=== PATIENT | female | born 1940 | race Two or more races ===

== ENCOUNTER 2016-10-08 21:16 | Inpatient (IN) | payer MEDICAID ==
[~2016-10-08] VITALS: Ht 157.5 cm; Wt 108.0 kg
[2016-10-08] MEDS ORDERED: Albuterol ud Inhalation HHN ONE (21:45)
--- NOTE | 2016-10-08 21:56 | Emergency Room Report ---
History of Present Illness General Chief Complaint: Dyspnea/Respdistress Source: Patient, Family Member Present Illness HPI This is a 75-year-old female with no past medical history. She hasn't seen a doctor in a long period of time. She presents with chief complaint of cough and congestion for the last 2 weeks. No fever or chills. No nausea no vomiting. Short of breath with walking. Short of breath with lying flat. No edema. Denies any chest pain. Does have chest tightness. Denies diaphoresis. Has not anything other than musinex. Allergies: Coded Allergies: No Known Allergies (Unverified , 10/08/16) Patient History Past Medical History: none, see triage record, old chart reviewed Past Surgical History: other Pertinent Family History: none Social History: Denies: drug use Now: No Immunizations: other Reviewed Nursing Documentation: PMH: Agreed, PSxH: Agreed Nursing Documentation-PM Past Medical History: No Stated History Review of Systems Eye: Denies: blurred vision, eye pain ENT: Denies: ear pain, nose congestion, throat swelling Respiratory: Reports: cough, shortness of breath Cardiovascular: Denies: chest pain, palpitations Gastrointestinal: Denies: abdominal pain, diarrhea, nausea, vomiting Musculoskeletal: Denies: back pain, joint pain Skin: Denies: rash Neurological: Denies: headache, numbness Endocrine: Denies: increased thirst, increased urine Hematologic/Lymphatic: Denies: easy bruising All Other Systems: negative except mentioned in HPI Physical Exam Vital Signs Date Time Temp Pulse Resp B/P Pulse Ox O2 Delivery O2 Flow Rate FiO2 10/08/16 21:23 98.2 115 21 113/71 98 Room Air 10/08/16 21:52 21 vitals with tachycardia Sp02 EP Interpretation: reviewed, normal General Appearance: well appearing, no apparent distress, alert Head: normocephalic, atraumatic Eyes: bilateral eye EOMI, bilateral eye PERRL ENT: hearing grossly normal, normal pharynx Neck: full range of motion, supple, no meningismus Respiratory: chest non-tender, rales - pt with a wet cough Cardiovascular #1: no murmur, tachycardia, irregularly irregular Gastrointestinal: normal bowel sounds, non tender, no mass, no organomegaly, no bruit, non-distended Musculoskeletal: back normal, gait/station normal, normal range of motion Psychiatric: mood/affect normal Skin: warm/dry Medical Decision Making Diagnostic Impression: Primary Impression: Atrial fibrillation with rapid ventricular response Additional Impressions: Acute exacerbation of CHF (congestive heart failure) Qualified Codes: I50.9 - Heart failure, unspecified Obesity (BMI 30-39.9) ER Course Patient presents with a wet cough for 2 weeks. This is secondary to CHF from her atrial fibrillation. She has no primary care Dr. Start her on dig to control the heart rate. This is because her blood pressure is on the low end of normal. Heart rate better now. Will admit for further workup. Lab Results Impression Labs with elevated bnp. EKG Diagnostic Results Rate: tachycardiac Rhythm: other - rapid afib ST Segments: no acute changes Rhythm Strip Diag. Results EP Interpretation: yes Rate: 93 Rhythm: no PVC's, no ectopy Chest X-Ray Diagnostic Results EP Interpretation: Yes Findings: no consolidation, no pneumothorax, other - CM with vasc congestion and small effusion Number of Views: 1 Last Vital Signs Date Time Temp Pulse Resp B/P Pulse Ox O2 Delivery O2 Flow Rate FiO2 10/08/16 21:52 102 21 96 Room Air 10/08/16 21:52 21 10/08/16 21:23 98.2 113/71 Status: improved Disposition: ADMITTED INPATIENT Condition: Serious Referrals: NOT CHOSEN REBECCA/,REFERRING (PCP) LYNN JETER M.D. Oct 08, 2016 21:56
[2016-10-08] MEDS ORDERED: Digoxin 0.5mg/2ml Inj IVP ONE (22:00)
[2016-10-08 22:03] VITALS: BP 107/69
[2016-10-08 22:05] LABS: BASOPHILS % (AUTO) 1.4 % (0.0-2.0); EOSINOPHILS % (AUTO) 2.8 % (0.0-3.0); LYMPHOCYTES % (AUTO) 15.2 % (20.0-45.0); MEAN CORPUSCULAR HEMOGLOBIN 23.6 PG (27.0-31.0); MEAN CORPUSCULAR VOLUME 74 FL (80-99); MEAN PLATELET VOLUME 5.3 FL (6.5-10.1); MONOCYTES % (AUTO) 14.7 % (1.0-10.0); NEUTROPHILS % (AUTO) 65.9 % (45.0-75.0); PLATELET COUNT 444 K/UL (150-450); RED BLOOD COUNT 4.52 M/UL (4.20-5.40); RED CELL DISTRIBUTION WIDTH 15.9 % (11.6-14.8)
[2016-10-08 22:27] LABS: INR 1.1 (0.9-1.1); PROTHROMBIN TIME 10.8 SEC (9.30-11.50)
[2016-10-08 22:32] LABS: TROPONIN I < 0.30 ng/mL (<=0.30)
[2016-10-08 22:36] LABS: ANION GAP 17 (5-15); CALCIUM 8.5 mg/dL (8.6-10.2); CARBON DIOXIDE 25 mEQ/L (20-30); CHLORIDE 81 mEQ/L (98-107); CREATININE 0.5 mg/dL (0.5-0.9); HEMOLYSIS 11; SODIUM 123 mEQ/L (135-145)
[2016-10-08] MEDS ORDERED: NKM (23:08)
[2016-10-08] MEDS ORDERED: Diltiazem 25mg/5ml IV PRN (23:45)
[2016-10-08] MEDS ORDERED: Miralax 17gm pkt ORAL PRN (23:45)
[2016-10-08] MEDS ORDERED: DuoNeb 0.5-3(2.5)mg/3ml neb HHN PRN (23:45)
[2016-10-08] MEDS ORDERED: Ketorolac 30mg Inj IV PRN (23:45)
[2016-10-08] MEDS ORDERED: Nitroglycerin Subl 0.4mg tab (Bottle Of 25) SL PRN (23:45)
[2016-10-08] MEDS ORDERED: Morphine Sulfate 2mg/ml Inj IVP PRN (23:45)
[2016-10-08] MEDS ORDERED: Metoprolol 5mg/5ml Inj IVP PRN (23:45)
[2016-10-08] MEDS ORDERED: Enoxaparin 100mg Inj SUBQ ONE (23:45)
[2016-10-08 23:55] LABS: APPEARANCE,URINE CLEAR; KETONES,URINE NEGATIVE (NEGATIVE); LEUKOCYTE ESTERASE ,URINE NEGATIVE (NEGATIVE); NITRITE,URINE NEGATIVE (NEGATIVE); PH,URINE 7 (4.5-8.0); PROTEIN,URINE NEGATIVE (NEGATIVE); UROBILINOGEN,URINE NORMAL MG/DL (0.0-1.0)
[2016-10-09] VITALS (7 sets, daily range): BP systolic 98–143; BP diastolic 46–80
[2016-10-09] MEDS ORDERED: Heparin 25,000u/D5W 500ml 500 ML IV SCH ×2 (02:30→03:41)
[2016-10-09 08:29] LABS: BASOPHILS % (AUTO) 1.2 % (0.0-2.0); EOSINOPHILS % (AUTO) 2.1 % (0.0-3.0); MEAN CORPUSCULAR HGB CONC 30.4 G/DL (32.0-36.0); MEAN CORPUSCULAR VOLUME 72 FL (80-99); MEAN PLATELET VOLUME 5.7 FL (6.5-10.1); MONOCYTES % (AUTO) 14.6 % (1.0-10.0); NEUTROPHILS % (AUTO) 70.2 % (45.0-75.0); PLATELET COUNT 436 K/UL (150-450); RED BLOOD COUNT 4.77 M/UL (4.20-5.40); RED CELL DISTRIBUTION WIDTH 16.2 % (11.6-14.8); WHITE BLOOD COUNT 6.5 K/UL (4.8-10.8)
[2016-10-09 08:36] LABS: INR 1.1 (0.9-1.1); PROTHROMBIN TIME 11.5 SEC (9.30-11.50)
[2016-10-09 08:45] LABS: CHOLESTEROL/HDL RATIO 2.5 (3.3-4.4); CRP QUANT 4.5 mg/dL (< 0.5); TROPONIN I < 0.30 ng/mL (<=0.30)
[2016-10-09] MEDS: Heparin 25,000u/D5W 500ml 500 ML IV SCH ×2 (08:52→17:36)
[2016-10-09 09:08] LABS: THYROID STIMULATING HORMONE 1.81 uIU/mL (0.300-4.500)
[2016-10-09] MEDS: guaiFENesin DM 100mg/5ml ORAL PRN ×2 (10:42→17:37)
--- NOTE | 2016-10-09 10:58 | Diagnostic Imaging Report ---
Indication: SOB Technique: One view of the chest Comparison: none Findings: Body habitus limits evaluation. The heart is enlarged. Vague increased opacity at both lung bases likely reflects overlying soft tissue shadows, but underlying critical disease not excludable. No definite effusion Impression: Cardiomegaly Cannot rule out bibasilar parenchymal disease. Correlate with clinical findings
--- NOTE | 2016-10-09 16:01 | Consultation ---
History of Present Illness General Date patient seen: Oct 09, 2016 Chief Complaint: Dyspnea/Respdistress Reason for Consultation: dyspnea Present Illness HPI 75-year-old female with no past medical history presented with chief complaint of cough and congestion for the last 2 weeks. No fever or chills. she was diagnosed to have Atrial fibrillation and CHF and admitted for further evaluation. she is morbidly obese and slightly less dyspnic than prior to admission. Allergies: Coded Allergies: No Known Allergies (Unverified , 10/08/16) Medication History Scheduled No Known Medications* (NKM - No Known Medications*), 0 ., (Reported) Patient History Healthcare decision maker Resuscitation status Full Code Advanced Directive on File Review of Systems Respiratory: Reports: shortness of breath All Other Systems: negative except mentioned in HPI Physical Exam General Appearance: WD/WN, no apparent distress Lines, tubes and drains: peripheral, central line HEENT: normocephalic, atraumatic Neck: non-tender, normal alignment Respiratory/Chest: chest wall non-tender, lungs clear Cardiovascular/Chest: normal peripheral pulses, normal rate, regularly irregular Abdomen: normal bowel sounds Genitourinary/Rectal: normal genital exam Extremities: normal range of motion Last 24 Hour Vital Signs Date Time Temp Pulse Resp B/P Pulse Ox O2 Delivery O2 Flow Rate FiO2 10/09/16 12:00 84 10/09/16 12:00 96.9 92 18 120/68 98 Nasal Cannula 2.0 10/09/16 11:44 98 20 95 Nasal Cannula 2.0 28 10/09/16 08:00 91 10/09/16 08:00 95.9 95 18 117/60 99 Nasal Cannula 10/09/16 08:00 81 16 Room Air 21 10/09/16 04:00 98 10/09/16 04:00 97.0 101 20 111/67 98 10/09/16 00:50 96.8 99 20 120/75 99 Room Air 10/09/16 00:39 98.6 98 19 126/80 97 Room Air 21 10/09/16 00:03 98.6 98 19 126/80 97 Room Air 21 10/08/16 22:09 100 10/08/16 22:03 110 16 Room Air 21 10/08/16 22:03 98.6 110 19 107/69 97 Room Air 10/08/16 22:01 98 20 98 Room Air 21 10/08/16 21:52 102 21 96 Room Air 10/08/16 21:52 102 21 Room Air 21 10/08/16 21:23 98.2 115 21 113/71 98 Room Air Intake and Output 10/08/16 10/09/16 19:00 07:00 Intake Total 267.432 ml Output Total 980 ml Balance -712.568 ml Intake Oral 120 ml IV Total 147.432 ml Output Urine Total 980 ml # Voids 5 Laboratory Tests Test 10/08/16 22:00 10/08/16 23:40 10/09/16 08:15 10/09/16 15:05 White Blood Count 7.0 K/UL (4.8-10.8) 6.5 K/UL (4.8-10.8) Red Blood Count 4.52 M/UL (4.20-5.40) 4.77 M/UL (4.20-5.40) Hemoglobin 10.7 G/DL (12.0-16.0) L 10.5 G/DL (12.0-16.0) L Hematocrit 33.3 % (37.0-47.0) L 34.6 % (37.0-47.0) L Mean Corpuscular Volume 74 FL (80-99) L 72 FL (80-99) L Mean Corpuscular Hemoglobin 23.6 PG (27.0-31.0) L 22.0 PG (27.0-31.0) L Mean Corpuscular Hemoglobin Concent 32.0 G/DL (32.0-36.0) 30.4 G/DL (32.0-36.0) L Red Cell Distribution Width 15.9 % (11.6-14.8) H 16.2 % (11.6-14.8) H Platelet Count 444 K/UL (150-450) 436 K/UL (150-450) Mean Platelet Volume 5.3 FL (6.5-10.1) L 5.7 FL (6.5-10.1) L Neutrophils (%) (Auto) 65.9 % (45.0-75.0) 70.2 % (45.0-75.0) Lymphocytes (%) (Auto) 15.2 % (20.0-45.0) L 12.0 % (20.0-45.0) L Monocytes (%) (Auto) 14.7 % (1.0-10.0) H 14.6 % (1.0-10.0) H Eosinophils (%) (Auto) 2.8 % (0.0-3.0) 2.1 % (0.0-3.0) Basophils (%) (Auto) 1.4 % (0.0-2.0) 1.2 % (0.0-2.0) Prothrombin Time 10.8 SEC (9.30-11.50) 11.5 SEC (9.30-11.50) Prothromb Time International Ratio 1.1 (0.9-1.1) 1.1 (0.9-1.1) Activated Partial Thromboplast Time 26 SEC (23-33) 98 SEC (23-33) H 73 SEC (23-33) H Sodium Level 123 mEQ/L (135-145) L Potassium Level 3.0 mEQ/L (3.4-4.9) L Chloride Level 81 mEQ/L (98-107) L Carbon Dioxide Level 25 mEQ/L (20-30) Anion Gap 17 (5-15) H Blood Urea Nitrogen 10 mg/dL (7-23) Creatinine 0.5 mg/dL (0.5-0.9) Estimat Glomerular Filtration Rate mL/min (>60) Glucose Level 136 mg/dL (74-106) H Calcium Level 8.5 mg/dL (8.6-10.2) L Troponin I < 0.30 ng/mL (<=0.30) < 0.30 ng/mL (<=0.30) Pro-B-Type Natriuretic Peptide 2498 pg/mL (0-450) H Urine Color Pale yellow Urine Appearance Clear Urine pH 7 (4.5-8.0) Urine Specific [place] 1.005 (1.005-1.035) Urine Protein Negative (NEGATIVE) Urine Glucose (UA) Negative (NEGATIVE) Urine Ketones Negative (NEGATIVE) Urine Occult Blood Negative (NEGATIVE) Urine Nitrite Negative (NEGATIVE) Urine Bilirubin Negative (NEGATIVE) Urine Urobilinogen Normal MG/DL (0.0-1.0) Urine Leukocyte Esterase Negative (NEGATIVE) C-Reactive Protein, Quantitative 4.5 mg/dL (< 0.5) H Triglycerides Level 57 mg/dL (< 150) Cholesterol Level 198 mg/dL (< 200) LDL Cholesterol 107 mg/dL (60-99) H HDL Cholesterol 80 mg/dL (> 60) H Cholesterol/HDL Ratio 2.5 (3.3-4.4) L Thyroid Stimulating Hormone (TSH) 1.810 uIU/mL (0.300-4.500) Height (Feet): 5 Height (Inches): 2.00 Weight (Pounds): 236 Medications Current Medications Medications (Trade) Dose Ordered Sig/Abby Route PRN Reason Start Time Stop Time Status Last Admin Dose Admin Acetaminophen (Tylenol) 650 mg Q4H PRN ORAL FEVER 10/08/16 23:45 11/07/16 23:44 Albuterol/ Ipratropium (DuoNeb 0.5-3(2.5)mg/3ml) 3 ml Q4H PRN HHN Shortness of Breath 10/08/16 23:45 10/13/16 23:44 10/09/16 11:44 Diltiazem HCl (Cardizem) 10 mg EVERY HOUR PRN IV heart rate more than 120, 10/08/16 23:45 11/07/16 23:44 Furosemide 40 mg 40 mg EVERY 8 HOURS IV 10/09/16 06:00 11/08/16 05:59 10/09/16 13:47 Guaifenesin/ Dextromethorphan (Robitussin DM) 5 ml Q4H PRN ORAL For Cough 10/09/16 09:30 11/08/16 09:29 10/09/16 10:42 Heparin Sodium/ Dextrose (Heparin) 500 ml @ 34.255 mls/ hr adjust per protocol IV 10/09/16 08:45 11/08/16 02:29 10/09/16 08:52 Ketorolac Tromethamine (Toradol 30mg) 30 mg Q6H PRN IV moderate pain ( 4-6) 10/08/16 23:45 10/13/16 23:44 Metoprolol Tartrate (Lopressor) 5 mg EVERY HOUR PRN IVP heart rate more than 140 10/08/16 23:45 11/07/16 23:44 Morphine Sulfate (Morphine Sulfate) 2 mg Q4H PRN IVP severe Pain (Pain Scale 7-10) 10/08/16 23:45 10/15/16 23:44 Nitroglycerin (Ntg) 0.4 mg Every 5 Minutes PRN SL Prn Chest Pain 10/08/16 23:45 11/07/16 23:44 Ondansetron HCl (Zofran) 4 mg Q6H PRN IVP Nausea & Vomiting 10/08/16 23:45 11/07/16 23:44 Pantoprazole (Protonix) 40 mg DAILY ORAL 10/09/16 09:00 11/08/16 08:59 10/09/16 08:48 Polyethylene Glycol (Miralax) 17 gm DAILYPRN PRN ORAL Constipation 10/08/16 23:45 11/07/16 23:44 Temazepam (Restoril) 15 mg HSPRN PRN ORAL Insomnia 10/08/16 23:45 10/15/16 23:44 Assessment/Plan Problem List: (1) Obesity (BMI 30-39.9) ICD Codes: E66.9 - Obesity, unspecified SNOMED: 757161406, 590012804 (2) Acute exacerbation of CHF (congestive heart failure) ICD Codes: I50.9 - Heart failure, unspecified SNOMED: 52730370, 658422356 Qualifiers: Qualified Codes: I50.9 - Heart failure, unspecified (3) Atrial fibrillation with rapid ventricular response ICD Codes: I48.91 - Unspecified atrial fibrillation SNOMED: 548127261728249, 761560284 Assessment/Plan diuretics heparin drip start coumadin digoxin MEHRAN MENJIVAR Oct 09, 2016 16:01
[2016-10-09 16:58] LABS: URIC ACID 3.2 mg/dL (3.0-7.5)
[2016-10-09 17:08] LABS: FREE T3 3.3 pg/mL (2.3-4.2); THYROID STIMULATING HORMONE 1.81 uIU/mL (0.300-4.500)
--- NOTE | 2016-10-09 17:21 | Cardiology Report ---
APPROVED REPORT EXAM: Two-dimensional and M-mode echocardiogram with Doppler and color Doppler. INDICATION Left Ventricular Function M-Mode DIMENSIONS IVSd1.4 (0.7-1.1cm)Left Atrium (MM)5.4 (1.6-4.0cm) LVDd5.0 (3.5-5.6cm)Aortic Root2.7 (2.0-3.7cm) PWd1.0 (0.7-1.1cm)Aortic Cusp Exc.1.7 (1.5-2.0cm) LVDs1.7 (2.5-4.0cm) PWs2.0 cm Normal left ventricular chamber size, systolic function and wall motion. Left ventricular ejection fraction estimated to be 60-65 %. Mild left ventricular hypertrophy. Anterior Echo-free space, may be due to pericardial fat or effusion. Moderate left atrial enlargement. Right ventricular chamber size is within normal limits. Mild focal aortic valve sclerosis with adequate cusp excursion. Mildly thickened mitral valve leaflets with normal excursion. Mild mitral annulus and aortic root calcification. Pulmonic valve not well visualized. Normal tricuspid valve structure. IVC dilated at 2.7 cm with physiologic collapse. A color flow and spectral Doppler study was performed and revealed: No aortic regurgitation. Moderate mitral regurgitation. Mitral inflow velocities indicates normal left ventricular diastolic function. Mild tricuspid regurgitation. Tricuspid systolic velocities suggests peak right ventricular systolic pressure of 65 mmHg, consistent with severe pulmonry hypertension. Mild pulmonic regurgitation present.
[2016-10-09] MEDS ORDERED: Warfarin Sodium 5mg ORAL ONE (18:00)
--- NOTE | 2016-10-09 18:19 | Cardiology Progress Note ---
Assessment/Plan Assessment/Plan afib unkown duration bronchitis dyspnea pulm htn obeisty electolyte abn hr contorled on dig avoid beta agonist agree with anticoagualtion abx for bronchitis dig / lwo dose dilt for hr contorl if needed dc diuretic as electolyte are off Objective Last 24 Hour Vital Signs Date Time Temp Pulse Resp B/P Pulse Ox O2 Delivery O2 Flow Rate FiO2 10/09/16 17:37 75 10/09/16 16:00 97.8 75 20 98/46 96 Room Air 10/09/16 12:00 84 10/09/16 12:00 96.9 92 18 120/68 98 Nasal Cannula 2.0 10/09/16 11:44 98 20 95 Nasal Cannula 2.0 28 10/09/16 08:00 91 10/09/16 08:00 95.9 95 18 117/60 99 Nasal Cannula 10/09/16 08:00 81 16 Room Air 21 10/09/16 04:00 98 10/09/16 04:00 97.0 101 20 111/67 98 10/09/16 00:50 96.8 99 20 120/75 99 Room Air 10/09/16 00:39 98.6 98 19 126/80 97 Room Air 21 10/09/16 00:03 98.6 98 19 126/80 97 Room Air 21 10/08/16 22:09 100 10/08/16 22:03 110 16 Room Air 21 10/08/16 22:03 98.6 110 19 107/69 97 Room Air 10/08/16 22:01 98 20 98 Room Air 21 10/08/16 21:52 102 21 96 Room Air 10/08/16 21:52 102 21 Room Air 21 10/08/16 21:23 98.2 115 21 113/71 98 Room Air Intake and Output 10/08/16 10/09/16 19:00 07:00 Intake Total 267.432 ml Output Total 980 ml Balance -712.568 ml Intake Oral 120 ml IV Total 147.432 ml Output Urine Total 980 ml # Voids 5 Laboratory Tests Test 10/08/16 22:00 10/08/16 23:40 10/09/16 08:15 10/09/16 15:05 White Blood Count 7.0 K/UL (4.8-10.8) 6.5 K/UL (4.8-10.8) Red Blood Count 4.52 M/UL (4.20-5.40) 4.77 M/UL (4.20-5.40) Hemoglobin 10.7 G/DL (12.0-16.0) L 10.5 G/DL (12.0-16.0) L Hematocrit 33.3 % (37.0-47.0) L 34.6 % (37.0-47.0) L Mean Corpuscular Volume 74 FL (80-99) L 72 FL (80-99) L Mean Corpuscular Hemoglobin 23.6 PG (27.0-31.0) L 22.0 PG (27.0-31.0) L Mean Corpuscular Hemoglobin Concent 32.0 G/DL (32.0-36.0) 30.4 G/DL (32.0-36.0) L Red Cell Distribution Width 15.9 % (11.6-14.8) H 16.2 % (11.6-14.8) H Platelet Count 444 K/UL (150-450) 436 K/UL (150-450) Mean Platelet Volume 5.3 FL (6.5-10.1) L 5.7 FL (6.5-10.1) L Neutrophils (%) (Auto) 65.9 % (45.0-75.0) 70.2 % (45.0-75.0) Lymphocytes (%) (Auto) 15.2 % (20.0-45.0) L 12.0 % (20.0-45.0) L Monocytes (%) (Auto) 14.7 % (1.0-10.0) H 14.6 % (1.0-10.0) H Eosinophils (%) (Auto) 2.8 % (0.0-3.0) 2.1 % (0.0-3.0) Basophils (%) (Auto) 1.4 % (0.0-2.0) 1.2 % (0.0-2.0) Prothrombin Time 10.8 SEC (9.30-11.50) 11.5 SEC (9.30-11.50) Prothromb Time International Ratio 1.1 (0.9-1.1) 1.1 (0.9-1.1) Activated Partial Thromboplast Time 26 SEC (23-33) 98 SEC (23-33) H 73 SEC (23-33) H Sodium Level 123 mEQ/L (135-145) L Potassium Level 3.0 mEQ/L (3.4-4.9) L Chloride Level 81 mEQ/L (98-107) L Carbon Dioxide Level 25 mEQ/L (20-30) Anion Gap 17 (5-15) H Blood Urea Nitrogen 10 mg/dL (7-23) Creatinine 0.5 mg/dL (0.5-0.9) Estimat Glomerular Filtration Rate mL/min (>60) Glucose Level 136 mg/dL (74-106) H Calcium Level 8.5 mg/dL (8.6-10.2) L Troponin I < 0.30 ng/mL (<=0.30) < 0.30 ng/mL (<=0.30) Pro-B-Type Natriuretic Peptide 2498 pg/mL (0-450) H Urine Color Pale yellow Urine Appearance Clear Urine pH 7 (4.5-8.0) Urine Specific [place] 1.005 (1.005-1.035) Urine Protein Negative (NEGATIVE) Urine Glucose (UA) Negative (NEGATIVE) Urine Ketones Negative (NEGATIVE) Urine Occult Blood Negative (NEGATIVE) Urine Nitrite Negative (NEGATIVE) Urine Bilirubin Negative (NEGATIVE) Urine Urobilinogen Normal MG/DL (0.0-1.0) Urine Leukocyte Esterase Negative (NEGATIVE) Neutrophils % (Manual) Pending Lymphocytes % (Manual) Pending Platelet Estimate Pending Platelet Morphology Pending Uric Acid 3.2 mg/dL (3.0-7.5) Iron Level 22 ug/dL (37-145) L Total Iron Binding Capacity 350 ug/dL (250-400) Percent Iron Saturation 6 % (15-50) L Unsaturated Iron Binding 328 ug/dL (112-346) Lactate Dehydrogenase 189 U/L (135-230) C-Reactive Protein, Quantitative 4.5 mg/dL (< 0.5) H Triglycerides Level 57 mg/dL (< 150) Cholesterol Level 198 mg/dL (< 200) LDL Cholesterol 107 mg/dL (60-99) H HDL Cholesterol 80 mg/dL (> 60) H Cholesterol/HDL Ratio 2.5 (3.3-4.4) L Carcinoembryonic Antigen 1.8 ng/mL Vitamin B12 Level 962 pg/mL (211-946) H Thyroid Stimulating Hormone (TSH) 1.810 uIU/mL (0.300-4.500) Free Thyroxine 1.46 ng/dL (0.86-1.85) Free Triiodothyronine 3.3 pg/mL (2.3-4.2) Test 10/09/16 16:55 Erythrocyte Sedimentation Rate Pending Reticulocyte Count Pending Plasma/Serum Osmolality Pending Folate Pending Cortisol Pending HEAVENLY MI Oct 09, 2016 18:19
--- NOTE | 2016-10-09 18:40 | History & Physical ---
History and Physical History & Physicial Dictated for Int Med-Dr Ann no. [id number]. ELIZA LIN Oct 09, 2016 18:40
[2016-10-09 20:31] LABS: BAND NEUTROPHILS % (MANUAL) 3 % (0-8); BASOPHILS % (MANUAL) 0 % (0-2); EOSINOPHILS % (MANUAL) 0 % (0-3); LYMPHOCYTES % (MANUAL) 12 % (20-45); NEUTROPHILS % (MANUAL) 77 % (45-75); PLATELET ESTIMATE ADEQUATE; TOTAL CELLS COUNTED 100
[2016-10-09 20:32] LABS: ANISOCYTOSIS 1+; HYPOCHROMASIA 1+; POLYCHROMASIA 1+
[2016-10-09 20:34] LABS: PATH BLOOD SMEAR/OMC SENT TO PATHOLOGIST
[2016-10-09] MEDS: NS w/KCl 20mEq 1,000 ML IV SCH (21:05)
--- NOTE | 2016-10-09 22:09 | Consultation ---
DATE OF CONSULTATION: 10/08/2016 CARDIOLOGY CONSULTATION CONSULTING PHYSICIAN: Rick Eden M.D. REFERRING PHYSICIAN: Elliot Ann M.D. REASON FOR REFERRAL: Atrial fibrillation. HISTORY OF PRESENT ILLNESS: This is an elderly female, who presented to the hospital because of coughing, shortness of breath, and some sputum production. No fevers and no chills. She has some shortness of breath. She has not been able to lay flat and uses three pillows. She has dyspnea on exertion and questionable PND. No palpitations except . No chest pain or pressure. No dizziness on standing. PAST MEDICAL HISTORY: Positive for high blood pressure. No heart attack. No cancer. No stroke. No hepatitis or tuberculosis. No asthma or emphysema. No ulcers. No kidney problems, liver problems, thyroid problems, anemia, or arthritis. She does have a history of blood clots in her legs number of years ago. She was treated with anticoagulation for a year, but not since then. SOCIAL HISTORY: She does not smoke or drink alcoholic beverages. REVIEW OF SYSTEMS: Gastrointestinal: Negative. Genitourinary: Negative. Pulmonary: Positive for cough and sputum production. Constitutional: Negative. Neurological: Negative. PHYSICAL EXAMINATION: GENERAL: Shows to be an elderly obese female, in no apparent respiratory distress. Does have significant amount of coughing. LUNGS: Appear to be clear to auscultation and percussion. CARDIAC: S1 is normal. S2 is normal. Irregularly irregular. Not tachycardic. Not bradycardic. No heaves or thrills. ABDOMEN: Soft and obese. Positive bowel sounds. EXTREMITIES: Trace edema in the lower extremities. NEUROLOGIC: She is awake, alert, responsive, and in no apparent respiratory distress. LABORATORY VALUES: A chest x-ray was performed and showed cardiomegaly. An echocardiogram has been performed that shows ejection fraction of 60% to 65%, normal left ventricular systolic function, left ventricular hypertrophy, no aortic regurgitation, moderate mitral regurgitation, normal left ventricular diastolic function, and tricuspid regurgitation. Pulmonary systolic pressure is 65. EKG shows atrial fibrillation. Ventricular response appears to be well controlled. The patient's white count 6.5, hemoglobin 10.5, and a platelet count of 436,000. Her sodium is 123, potassium 3.0, chloride 81, bicarb 25, BUN of 10, creatinine 0.5, glucose of 136, and calcium was 8.5. Troponin is less than 0.3. ProBNP is only 2400. CRP of 4.5. Total cholesterol was 180. TSH of 1.8. INR is 1.1 and PTT of 98 and subsequently 73 on anticoagulation. A urinalysis is unremarkable. ASSESSMENT: 1. Atrial fibrillation, unknown duration. 2. Bronchitis. 3. Anemia. 4. Electrolyte abnormalities. PLAN: Dr. Ann, this patient was seen in cardiac consultation. She does have some shortness of breath. It has been going on for some time. The echocardiogram showed normal left ventricular systolic function and normal diastolic function. She is quite obese. She does have some elevated pulmonary systolic pressures. She has had a history of deep venous thrombosis previously. She has already started on anticoagulation, which she needs for further stroke prevention. We will continue that at the present time. Her blood pressure is adequately controlled at this time and she is on some albuterol that may have contributed to her tachycardia and eventually, she has received some intravenous diuretics. I would discontinue the use of diuretics for the time being and she has received some digoxin and she may need some low-dose diltiazem for control of her heart rate long-term avoiding some beta-blockers. We will discontinue the use of diuretics. The source of anticoagulation will be left to you. She requires maybe low dose of diltiazem for heart rate control. Rick Eden M.D. DR: MILAGRO JOB#: [id number] CC:
--- NOTE | 2016-10-09 22:29 | History and Physical Report ---
DATE OF ADMISSION: 10/08/2016 CHIEF COMPLAINT: The patient is a 75-year-old female, presents with complaint of cough and shortness of breath. HISTORY OF PRESENT ILLNESS: Began three weeks prior to admission. The patient began to experience a dry cough. The patient states she feels like she has phlegm however is unable to expectorate the phlegm. The patient also has laryngitis. The patient presented to [place] emergency room. The patient was found to be in atrial fibrillation with rapid ventricular rate. The patient was admitted for cough to rule out pneumonia and atrial fibrillation with rapid ventricular rate. PAST MEDICAL HISTORY: The patient previously has a history of hypertension, however, is not taking any medications for hypertension. PAST SURGICAL HISTORY: The patient denies. CURRENT MEDICATIONS: 1. Hydrochlorothiazide of an unknown dose daily. 2. Unknown pain medication . ALLERGIES: No known drug allergies. SOCIAL HISTORY: The patient is a . The patient's daughter is present during the interview. The patient lives with her adult daughter. The patient denies tobacco use. The patient admits to rare alcohol use. REVIEW OF SYSTEMS: Constitutional: The patient denies weight loss or weight gain. The patient denies fevers or chills. HEENT: The patient denies ear or throat pain. The patient denies headache. Cardiovascular: The patient denies palpitations or chest pain. Chest: The patient complains of cough and shortness of breath as above. The patient complains of pleuritic chest pain. The patient denies wheezes. Abdomen: The patient denies nausea, vomiting, diarrhea, or constipation. Genitourinary: The patient denies dysuria or increased frequency of urination. Neuromuscular: The patient denies seizures or generalized weakness. PHYSICAL EXAMINATION: VITAL SIGNS: Temperature 97.0 degrees, respirations 20, pulse 98 to 101, and blood pressure 111/67. GENERAL: The patient is well-developed and well-nourished obese female, in no apparent distress. HEENT: Pupils are equal and responsive to light and accommodation. Extraocular movements are intact. NECK: Supple without lymphadenopathy. CHEST: Lungs have crackles in bilateral bases. Otherwise, clear to auscultation bilaterally without wheezes or rales. CARDIOVASCULAR: Tachycardic. Regular rhythm without murmurs, rubs, or gallops. ABDOMEN: Soft, nontender, and nondistended. Positive bowel sounds. No evidence of hepatosplenomegaly. Currently, no rebound or guarding. EXTREMITIES: Negative for clubbing, cyanosis, or edema. RECTAL/GENITAL: Refused. NEUROLOGIC: Cranial nerves II through XII are grossly intact without focal deficits. Motor strength is 5/5 bilaterally. Deep tendon reflexes 2+ plantar. LABORATORY STUDIES: WBC 7.0, hemoglobin 10.7, hematocrit 33.3, and platelets 444,000. Sodium 123, potassium 3.0, chloride 181, CO2 25, BUN 10, creatinine 0.5, and glucose 136. BNP elevated at 2498. Troponin normal at less than 0.3. Chest x-ray revealed bibasilar parenchymal disease, otherwise within normal limits. ASSESSMENT: This is a 75-year-old female, 1. Cough. 2. Shortness of breath. 3. Atrial fibrillation with a rapid ventricular rate. 4. Chest pain. 5. Hypertension. TREATMENT: 1. Cough/shortness of breath. A Pulmonary consultation was obtained with Dr. Walter Black. The patient has been started empirically on Levaquin. The patient is also receiving DuoNeb. 2. Atrial fibrillation with rapid ventricular rate. A Cardiology consultation was obtained with Dr. Rick Eden. The patient has been started on digoxin. We will follow recommendations of Cardiology. An echocardiogram is pending. 3. Hypertension. The patient takes what sounds like hydrochlorothiazide at home. The patient has been placed on diltiazem intravenously and Lopressor intravenously in view of atrial fibrillation as above. Kana Coffman M.D. DR: Jeremy JOB#: [id number] CC:
[2016-10-10] VITALS: BP 117/52
[2016-10-10] MEDS ORDERED: Heparin 25,000u/D5W 500ml 500 ML IV SCH ×2 (01:00→10:00)
[2016-10-10 04:00] VITALS: BP 113/72
[2016-10-10 08:00] VITALS: BP 120/78
[2016-10-10 08:08] LABS: CORTISOL LC 11.9 ug/dL (.)
[2016-10-10 08:30] LABS: EOSINOPHILS % (AUTO) 2.7 % (0.0-3.0); LYMPHOCYTES % (AUTO) 16.5 % (20.0-45.0); MEAN CORPUSCULAR HEMOGLOBIN 22.8 PG (27.0-31.0); MEAN CORPUSCULAR HGB CONC 31.4 G/DL (32.0-36.0); MEAN CORPUSCULAR VOLUME 73 FL (80-99); MEAN PLATELET VOLUME 5.2 FL (6.5-10.1); NEUTROPHILS % (AUTO) 65.8 % (45.0-75.0); PLATELET COUNT 418 K/UL (150-450); RED BLOOD COUNT 4.39 M/UL (4.20-5.40); RED CELL DISTRIBUTION WIDTH 16.4 % (11.6-14.8); WHITE BLOOD COUNT 6.1 K/UL (4.8-10.8)
[2016-10-10 08:44] LABS: ALANINE AMINOTRANSFERASE 22 U/L (3-33); ANION GAP 15 (5-15); ASPARTATE AMINO TRANSFERASE 31 U/L (5-40); CALCIUM 8.2 mg/dL (8.6-10.2); CARBON DIOXIDE 29 mEQ/L (20-30); CHLORIDE 84 mEQ/L (98-107); CREATININE 0.6 mg/dL (0.5-0.9); HEMOLYSIS 51; POTASSIUM 3.1 mEQ/L (3.4-4.9); SODIUM 128 mEQ/L (135-145); TOTAL PROTEIN 6.6 g/dL (6.6-8.7)
[2016-10-10 09:01] LABS: INR 1.3 (0.9-1.1); PROTHROMBIN TIME 12.8 SEC (9.30-11.50)
[2016-10-10 09:08] LABS: TROPONIN I < 0.30 ng/mL (<=0.30)
[2016-10-10] MEDS ORDERED: KCl 10% 40mEq/30ml liquid NG ONE ×3 (09:15→18:00)
--- NOTE | 2016-10-10 09:21 | Pulmonology Progress Note ---
Assessment/Plan Assessment/Plan ASSESSMENT AF with RVR - tele, rate controlled, a/coag with heparin and Coumadin to bridge to therapeutic INR, then dc Heparin, INR stil subtherapeutic; on Digoxin, ? routine Cardizem for rate control - per cardio discretion bronchitis with bronchospasm -O2, HHN, antitussive prn , short pulse of po steroids for few days, CXR today, 10/10 - no acute disease CHF - s/p diuretic, stopped by cardio, ECHO with preserved EF , moderate MR, moderate LVH and severe pulmonary HTN, elevated pro BNP, CXR- no evidence of congestion , no clinical evidence of CHF exacerbation anemia - monitor HH, CEA WNL, check stool OB, anemia workup with low iron, Venofer x 1 today obesity electrolyte imbalance ( hypo Na, hypo K) - IVF with Na and K, additional K replacement today, cehck Na, K and Mg in am severe pulmonary HTN hyperlipidemia -lipid panel with elevated LDL, add low dose of statin moderate MR case discussed and evaluated by supervising physician Subjective Allergies: Coded Allergies: No Known Allergies (Unverified , 10/08/16) Subjective denies chest pain, admits to cough, productive , white to yellow phlegm, no wheezing, no hemoptysis afebrile, no leucocytosis Objective Last 24 Hour Vital Signs Date Time Temp Pulse Resp B/P Pulse Ox O2 Delivery O2 Flow Rate FiO2 10/10/16 04:00 84 10/10/16 04:00 97.2 91 20 113/72 97 Room Air 10/10/16 00:00 88 10/10/16 00:00 92 100 10/10/16 00:00 97.2 92 18 117/52 97 Room Air 10/09/16 20:10 85 16 Room Air 21 10/09/16 20:00 97.3 99 20 143/71 95 Room Air 10/09/16 20:00 87 10/09/16 17:37 75 10/09/16 16:00 97.8 75 20 98/46 96 Room Air 10/09/16 16:00 105 10/09/16 12:00 84 10/09/16 12:00 96.9 92 18 120/68 98 Nasal Cannula 2.0 10/09/16 11:44 98 20 95 Nasal Cannula 2.0 28 Intake and Output 10/09/16 10/10/16 19:00 07:00 Intake Total 859.784 ml 1550.060 ml Output Total 250 ml Balance 609.784 ml 1550.060 ml Intake Oral 460 ml 370 ml IV Total 399.784 ml 1180.060 ml Output Urine Total 250 ml # Voids 2 3 # Bowel Movements 1 General Appearance: WD/WN, no acute distress, other - awake, alert, Indonesian speaking obese elderly female HEENT: normocephalic, atraumatic, anicteric, mucous membranes moist Respiratory/Chest: expiratory wheezing - few scattered expiratory wheezes, , other - coarse BS overall Cardiovascular: normal rate, irregularly irregular - A fib on tele Abdomen: normal bowel sounds, soft, non tender - obese Genitourinary: normal external genitalia Neurologic/Psychiatric: no motor/sensory deficits, alert, responsive Laboratory Tests 10/09/16 15:05: Activated Partial Thromboplast Time 73H 10/09/16 16:55: Erythrocyte Sedimentation Rate 35H, Reticulocyte Count 1.0, Plasma/Serum Osmolality [Pending], Folate [Pending], Cortisol 11.9 10/10/16 07:30: Activated Partial Thromboplast Time [Pending], White Blood Count 6.1, Red Blood Count 4.39, Hemoglobin 10.0L, Hematocrit 31.9L, Mean Corpuscular Volume 73L, Mean Corpuscular Hemoglobin 22.8L, Mean Corpuscular Hemoglobin Concent 31.4L, Red Cell Distribution Width 16.4H, Platelet Count 418, Mean Platelet Volume 5.2L , Neutrophils (%) (Auto) 65.8, Lymphocytes (%) (Auto) 16.5L, Monocytes (%) (Auto ) 13.0H, Eosinophils (%) (Auto) 2.7, Basophils (%) (Auto) 2.0, Prothrombin Time [Pending], Prothromb Time International Ratio [Pending], Sodium Level 128L, Potassium Level 3.1L, Chloride Level 84L, Carbon Dioxide Level 29, Anion Gap 15 , Blood Urea Nitrogen 8, Creatinine 0.6, Estimat Glomerular Filtration Rate , Glucose Level 127H, Calcium Level 8.2L, Total Bilirubin 0.4, Aspartate Amino Transf (AST/SGOT) 31, Alanine Aminotransferase (ALT/SGPT) 22, Alkaline Phosphatase 68, Troponin I [Pending], Pro-B-Type Natriuretic Peptide [Pending], Total Protein 6.6, Albumin 3.4L, Globulin 3.2, Albumin/Globulin Ratio 1.0 Current Medications Medications (Trade) Dose Ordered Sig/Abby Route PRN Reason Start Time Stop Time Status Last Admin Dose Admin Acetaminophen (Tylenol) 650 mg Q4H PRN ORAL FEVER 10/08/16 23:45 11/07/16 23:44 Albuterol/ Ipratropium (DuoNeb 0.5-3(2.5)mg/3ml) 3 ml Q4H PRN HHN Shortness of Breath 10/08/16 23:45 10/13/16 23:44 10/09/16 11:44 Digoxin 0.25 mg 0.25 mg DAILY ORAL 10/09/16 18:00 11/08/16 17:59 10/09/16 17:37 Diltiazem HCl (Cardizem) 10 mg EVERY HOUR PRN IV heart rate more than 120, 10/08/16 23:45 11/07/16 23:44 Guaifenesin/ Dextromethorphan (Robitussin DM) 5 ml Q4H PRN ORAL For Cough 10/09/16 09:30 11/08/16 09:29 10/09/16 17:37 Heparin Sodium/ Dextrose (Heparin) 500 ml @ 34.255 mls/ hr adjust per protocol IV 10/09/16 08:45 11/08/16 02:29 10/09/16 17:36 Levofloxacin (Levaquin) 100 ml @ 100 mls/hr Q24H IVPB 10/09/16 20:00 10/16/16 19:59 10/09/16 21:05 Metoprolol Tartrate 5 mg 5 mg EVERY HOUR PRN IVP heart rate more than 140 10/08/16 23:45 11/07/16 23:44 Nitroglycerin (Ntg) 0.4 mg Every 5 Minutes PRN SL Prn Chest Pain 10/08/16 23:45 11/07/16 23:44 Ondansetron HCl (Zofran) 4 mg Q6H PRN IVP Nausea & Vomiting 10/08/16 23:45 11/07/16 23:44 Pantoprazole (Protonix) 40 mg DAILY ORAL 10/09/16 09:00 11/08/16 08:59 10/09/16 08:48 Polyethylene Glycol (Miralax) 17 gm DAILYPRN PRN ORAL Constipation 10/08/16 23:45 11/07/16 23:44 Sodium Chloride 1,000 ml @ 75 mls/hr [id number] IV 10/09/16 20:00 11/08/16 19:59 10/09/16 21:05 Temazepam (Restoril) 15 mg HSPRN PRN ORAL Insomnia 10/08/16 23:45 10/15/16 23:44 Warfarin Sodium (Coumadin per pharmacy) 1 ea DAILY PRN MISC Per rx protocol 10/09/16 16:15 11/08/16 16:14 [facility] ([facility])Eneida NP Oct 10, 2016 09:21
[2016-10-10] MEDS: NS w/KCl 20mEq 1,000 ML IV SCH (10:15)
--- NOTE | 2016-10-10 10:59 | Diagnostic Imaging Report ---
Indication: Dyspnea Comparison: 10/08/16 A single view chest radiograph was obtained. Findings: No definite infiltrate or pulmonary vascular congestion identified. The heart is enlarged. The aorta is mildly enlarged consistent with atherosclerotic vascular disease. The bones are osteopenic. Impression: No acute disease
[2016-10-10] MEDS ORDERED: Iron Sucrose 100 MG in NS 55 ML IVPB ONE (11:00)
[2016-10-10 12:00] VITALS: BP 104/58
[2016-10-10] MEDS ORDERED: PredniSONE 20mg tab ORAL ONE (12:00)
--- NOTE | 2016-10-10 12:52 | Internal Med Progress Note ---
Subjective Date of Service: Oct 10, 2016 Physician Name Kana Lin Attending Physician Elliot Ann MD Current Medications Medications (Trade) Dose Ordered Sig/Abby Route PRN Reason Start Time Stop Time Status Last Admin Dose Admin Acetaminophen (Tylenol) 650 mg Q4H PRN ORAL FEVER 10/08/16 23:45 11/07/16 23:44 Albuterol/ Ipratropium (DuoNeb 0.5-3(2.5)mg/3ml) 3 ml Q4H PRN HHN Shortness of Breath 10/08/16 23:45 10/13/16 23:44 10/09/16 11:44 Atorvastatin Calcium 10 mg 10 mg BEDTIME ORAL 10/10/16 21:00 11/09/16 20:59 Digoxin 0.25 mg 0.25 mg DAILY ORAL 10/09/16 18:00 11/08/16 17:59 10/10/16 10:00 Diltiazem HCl (Cardizem) 10 mg EVERY HOUR PRN IV heart rate more than 120, 10/08/16 23:45 11/07/16 23:44 Guaifenesin/ Dextromethorphan (Robitussin DM) 5 ml Q4H PRN ORAL For Cough 10/09/16 09:30 11/08/16 09:29 10/09/16 17:37 Heparin Sodium/ Dextrose (Heparin) 500 ml @ 27.832 mls/ hr adjust per protocol IV 10/10/16 10:00 11/09/16 09:59 10/10/16 10:17 Levofloxacin (Levaquin) 100 ml @ 100 mls/hr Q24H IVPB 10/09/16 20:00 10/16/16 19:59 10/09/16 21:05 Metoprolol Tartrate (Lopressor) 5 mg EVERY HOUR PRN IVP heart rate more than 140 10/08/16 23:45 11/07/16 23:44 Nitroglycerin (Ntg) 0.4 mg Every 5 Minutes PRN SL Prn Chest Pain 10/08/16 23:45 11/07/16 23:44 Ondansetron HCl (Zofran) 4 mg Q6H PRN IVP Nausea & Vomiting 10/08/16 23:45 11/07/16 23:44 Pantoprazole (Protonix) 40 mg DAILY ORAL 10/09/16 09:00 11/08/16 08:59 10/10/16 09:59 Polyethylene Glycol (Miralax) 17 gm DAILYPRN PRN ORAL Constipation 10/08/16 23:45 11/07/16 23:44 Sodium Chloride 1,000 ml @ 75 mls/hr [id number] IV 10/09/16 20:00 11/08/16 19:59 10/10/16 10:15 Temazepam (Restoril) 15 mg HSPRN PRN ORAL Insomnia 10/08/16 23:45 10/15/16 23:44 Warfarin Sodium (Coumadin per pharmacy) 1 ea DAILY PRN MISC Per rx protocol 10/09/16 16:15 11/08/16 16:14 Warfarin Sodium (Coumadin) 3 mg COUMADIN ONCE ORAL 10/10/16 17:00 10/10/16 17:01 Allergies: Coded Allergies: No Known Allergies (Unverified , 10/08/16) ROS Limited/Unobtainable: No Constitutional: Reports: no symptoms HEENT: Reports: no symptoms Cardiovascular: Reports: chest pain Respiratory: Reports: cough, shortness of breath Gastrointestinal/Abdominal: Reports: no symptoms Genitourinary: Reports: no symptoms Neurologic/Psychiatric: Reports: no symptoms Subjective 75 YO F admitted with shortness of breath and atrial fibrillation with rapid ventricular rate. Cover for Int Med-Dr Ann. Objective Last Vital Signs Date Time Temp Pulse Resp B/P Pulse Ox O2 Delivery O2 Flow Rate FiO2 10/10/16 10:00 87 10/10/16 08:00 18 Room Air 21 10/10/16 08:00 97.7 120/78 100 10/09/16 12:00 2.0 General Appearance: WD/WN, no apparent distress, obese EENT: PERRL/EOMI, normal ENT inspection Neck: non-tender, normal alignment, supple Cardiovascular: normal peripheral pulses, no gallop/murmur, no JVD, irregularly irregular Respiratory/Chest: chest wall non-tender, crackles/rales, rhonchi - bilaterally , expiratory wheezing Abdomen: normal bowel sounds, non tender, soft, no organomegaly, no mass Extremities: normal range of motion, non-tender 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, no motor/sensory deficits Skin: normal pigmentation, warm/dry Laboratory Tests Test 10/09/16 15:05 10/09/16 16:55 10/10/16 07:30 Activated Partial Thromboplast Time 73 SEC (23-33) H 125 SEC (23-33) H Erythrocyte Sedimentation Rate 35 MM/HR (0-30) H Reticulocyte Count 1.0 % (0.0-2.0) Plasma/Serum Osmolality Pending Folate 12.8 ng/mL (>3.0) Cortisol 11.9 ug/dL (.) White Blood Count 6.1 K/UL (4.8-10.8) Red Blood Count 4.39 M/UL (4.20-5.40) Hemoglobin 10.0 G/DL (12.0-16.0) L Hematocrit 31.9 % (37.0-47.0) L Mean Corpuscular Volume 73 FL (80-99) L Mean Corpuscular Hemoglobin 22.8 PG (27.0-31.0) L Mean Corpuscular Hemoglobin Concent 31.4 G/DL (32.0-36.0) L Red Cell Distribution Width 16.4 % (11.6-14.8) H Platelet Count 418 K/UL (150-450) Mean Platelet Volume 5.2 FL (6.5-10.1) L Neutrophils (%) (Auto) 65.8 % (45.0-75.0) Lymphocytes (%) (Auto) 16.5 % (20.0-45.0) L Monocytes (%) (Auto) 13.0 % (1.0-10.0) H Eosinophils (%) (Auto) 2.7 % (0.0-3.0) Basophils (%) (Auto) 2.0 % (0.0-2.0) Prothrombin Time 12.8 SEC (9.30-11.50) H Prothromb Time International Ratio 1.3 (0.9-1.1) H Sodium Level 128 mEQ/L (135-145) L Potassium Level 3.1 mEQ/L (3.4-4.9) L Chloride Level 84 mEQ/L (98-107) L Carbon Dioxide Level 29 mEQ/L (20-30) Anion Gap 15 (5-15) Blood Urea Nitrogen 8 mg/dL (7-23) Creatinine 0.6 mg/dL (0.5-0.9) Estimat Glomerular Filtration Rate mL/min (>60) Glucose Level 127 mg/dL (74-106) H Calcium Level 8.2 mg/dL (8.6-10.2) L Total Bilirubin 0.4 mg/dL (0.0-1.2) Aspartate Amino Transf (AST/SGOT) 31 U/L (5-40) Alanine Aminotransferase (ALT/SGPT) 22 U/L (3-33) Alkaline Phosphatase 68 U/L (35-104) Troponin I < 0.30 ng/mL (<=0.30) Pro-B-Type Natriuretic Peptide 2541 pg/mL (0-450) H Total Protein 6.6 g/dL (6.6-8.7) Albumin 3.4 g/dL (3.5-5.2) L Globulin 3.2 g/dL Albumin/Globulin Ratio 1.0 (1.0-2.7) Intake and Output 10/09/16 10/10/16 19:00 07:00 Intake Total 859.784 ml 1550.060 ml Output Total 250 ml Balance 609.784 ml 1550.060 ml Intake Oral 460 ml 370 ml IV Total 399.784 ml 1180.060 ml Output Urine Total 250 ml # Voids 2 3 # Bowel Movements 1 Assessment/Plan Problem List: (1) Cough (2) Shortness of breath (3) Pleuritic chest pain (4) HTN (hypertension) Assessment & Plan: Cont cardizem and lopressor (5) Hyponatremia Assessment & Plan: ?cause? cont NS IV (6) Hypokalemia (7) Atrial fibrillation with rapid ventricular response Assessment & Plan: See cardiology note. On coumadin and digoxin. (8) Obesity (BMI 30-39.9) (9) Bronchitis Assessment & Plan: Cont levaquin Status: not improved KANA LIN Oct 10, 2016 12:52
[2016-10-10 16:00] VITALS: BP 120/65
[2016-10-10] MEDS ORDERED: Warfarin Sodium 3mg ORAL ONE (17:00)
--- NOTE | 2016-10-10 17:15 | Cardiology Progress Note ---
Assessment/Plan Assessment/Plan The patient is 2 l positive she has good oral intake, will stop IVF severe pulmonary hypertension, unclear ethiology in process of anticoagulation with IV heparin and Coumadin Subjective Subjective the patient is sitting in the chair, just had her dinner she had good oral intake Objective Last 24 Hour Vital Signs Date Time Temp Pulse Resp B/P Pulse Ox O2 Delivery O2 Flow Rate FiO2 10/10/16 16:00 97.7 124 20 120/65 98 Room Air 10/10/16 16:00 124 97 105 10/10/16 12:00 80 101 96 10/10/16 12:00 81 10/10/16 12:00 97.7 83 17 104/58 97 Room Air 10/10/16 10:00 87 10/10/16 09:00 101 77 85 10/10/16 08:00 90 10/10/16 08:00 87 18 Room Air 21 10/10/16 08:00 97.7 101 17 120/78 100 Room Air 10/10/16 04:00 84 10/10/16 04:00 97.2 91 20 113/72 97 Room Air 10/10/16 00:00 88 10/10/16 00:00 92 100 10/10/16 00:00 97.2 92 18 117/52 97 Room Air 10/09/16 20:10 85 16 Room Air 21 10/09/16 20:00 97.3 99 20 143/71 95 Room Air 10/09/16 20:00 87 10/09/16 17:37 75 General Appearance: no apparent distress, alert EENT: PERRL/EOMI Neck: JVD, pain on motion Rhythm: Afib Cardiovascular: tachycardia, systolic murmur Respiratory/Chest: crackles/rales Abdomen: soft Extremities: no swelling Intake and Output 10/09/16 10/10/16 19:00 07:00 Intake Total 859.784 ml 1550.060 ml Output Total 250 ml Balance 609.784 ml 1550.060 ml Intake Oral 460 ml 370 ml IV Total 399.784 ml 1180.060 ml Output Urine Total 250 ml # Voids 2 3 # Bowel Movements 1 Laboratory Tests Test 10/10/16 07:30 10/10/16 16:25 White Blood Count 6.1 K/UL (4.8-10.8) Red Blood Count 4.39 M/UL (4.20-5.40) Hemoglobin 10.0 G/DL (12.0-16.0) L Hematocrit 31.9 % (37.0-47.0) L Mean Corpuscular Volume 73 FL (80-99) L Mean Corpuscular Hemoglobin 22.8 PG (27.0-31.0) L Mean Corpuscular Hemoglobin Concent 31.4 G/DL (32.0-36.0) L Red Cell Distribution Width 16.4 % (11.6-14.8) H Platelet Count 418 K/UL (150-450) Mean Platelet Volume 5.2 FL (6.5-10.1) L Neutrophils (%) (Auto) 65.8 % (45.0-75.0) Lymphocytes (%) (Auto) 16.5 % (20.0-45.0) L Monocytes (%) (Auto) 13.0 % (1.0-10.0) H Eosinophils (%) (Auto) 2.7 % (0.0-3.0) Basophils (%) (Auto) 2.0 % (0.0-2.0) Prothrombin Time 12.8 SEC (9.30-11.50) H Prothromb Time International Ratio 1.3 (0.9-1.1) H Activated Partial Thromboplast Time 125 SEC (23-33) H Pending Sodium Level 128 mEQ/L (135-145) L Potassium Level 3.1 mEQ/L (3.4-4.9) L Chloride Level 84 mEQ/L (98-107) L Carbon Dioxide Level 29 mEQ/L (20-30) Anion Gap 15 (5-15) Blood Urea Nitrogen 8 mg/dL (7-23) Creatinine 0.6 mg/dL (0.5-0.9) Estimat Glomerular Filtration Rate mL/min (>60) Glucose Level 127 mg/dL (74-106) H Calcium Level 8.2 mg/dL (8.6-10.2) L Total Bilirubin 0.4 mg/dL (0.0-1.2) Aspartate Amino Transf (AST/SGOT) 31 U/L (5-40) Alanine Aminotransferase (ALT/SGPT) 22 U/L (3-33) Alkaline Phosphatase 68 U/L (35-104) Troponin I < 0.30 ng/mL (<=0.30) Pro-B-Type Natriuretic Peptide 2541 pg/mL (0-450) H Total Protein 6.6 g/dL (6.6-8.7) Albumin 3.4 g/dL (3.5-5.2) L Globulin 3.2 g/dL Albumin/Globulin Ratio 1.0 (1.0-2.7) SARAH ARCINIEGA Oct 10, 2016 17:15
[2016-10-10] MEDS ORDERED: NS 275ml ONE (17:22)
[2016-10-10] MEDS ORDERED: Tubing IV Secondary IV ONE (17:22)
[2016-10-10 17:47] LABS: APPEARANCE,URINE CLEAR; KETONES,URINE NEGATIVE (NEGATIVE); LEUKOCYTE ESTERASE ,URINE NEGATIVE (NEGATIVE); NITRITE,URINE NEGATIVE (NEGATIVE); PH,URINE 7 (4.5-8.0); PROTEIN,URINE NEGATIVE (NEGATIVE); UROBILINOGEN,URINE NORMAL MG/DL (0.0-1.0)
[2016-10-10 18:01] LABS: RBC,URINE 0 /HPF (0 - 2); SQUAMOUS EPITHELIAL CELL,UR MODERATE /LPF (NONE/OCC); WBC,URINE 0-2 /HPF (0 - 2)
[2016-10-10 20:00] VITALS: BP 121/68
[2016-10-10] MEDS: guaiFENesin DM 100mg/5ml ORAL PRN (23:51)
[2016-10-11 00:08] VITALS: BP 110/55
[2016-10-11 04:00] VITALS: BP 116/69
[2016-10-11 04:39] LABS: BASOPHILS % (AUTO) 2.4 % (0.0-2.0); EOSINOPHILS % (AUTO) 1.8 % (0.0-3.0); LYMPHOCYTES % (AUTO) 26.4 % (20.0-45.0); MEAN CORPUSCULAR HEMOGLOBIN 22.7 PG (27.0-31.0); MEAN CORPUSCULAR VOLUME 73 FL (80-99); MEAN PLATELET VOLUME 5.7 FL (6.5-10.1); MONOCYTES % (AUTO) 13.6 % (1.0-10.0); NEUTROPHILS % (AUTO) 55.8 % (45.0-75.0); PLATELET COUNT 361 K/UL (150-450); RED BLOOD COUNT 4.39 M/UL (4.20-5.40); RED CELL DISTRIBUTION WIDTH 16.6 % (11.6-14.8); WHITE BLOOD COUNT 6.4 K/UL (4.8-10.8)
[2016-10-11 04:49] LABS: INR 1.4 (0.9-1.1); PROTHROMBIN TIME 14.7 SEC (9.30-11.50)
[2016-10-11 05:06] LABS: ANION GAP 12 (5-15); CALCIUM 8.6 mg/dL (8.6-10.2); CARBON DIOXIDE 28 mEQ/L (20-30); CHLORIDE 92 mEQ/L (98-107); CREATININE 0.5 mg/dL (0.5-0.9); HEMOLYSIS 60; MAGNESIUM 1.8 mg/dL (1.7-2.5); POTASSIUM 4.4 mEQ/L (3.4-4.9); SODIUM 132 mEQ/L (135-145)
[2016-10-11] MEDS: Heparin 25,000u/D5W 500ml 500 ML IV SCH (05:22)
[2016-10-11 08:00] VITALS: BP 113/59
[2016-10-11] MEDS: guaiFENesin DM 100mg/5ml ORAL PRN ×2 (08:45→16:55)
--- NOTE | 2016-10-11 10:32 | Pulmonology Progress Note ---
Assessment/Plan Assessment/Plan ASSESSMENT AF with RVR - tele, rate controlled, a/coag with heparin and Coumadin to bridge to therapeutic INR, then dc Heparin, INR still subtherapeutic; on Digoxin, ? routine Cardizem for rate control - per cardio discretion bronchitis with bronchospasm -O2, HHN, antitussive prn , short pulse of po steroids for few days, CXR today, 10/10 - no acute disease CHF - s/p diuretic, stopped by cardio, ECHO with preserved EF , moderate MR, moderate LVH and severe pulmonary HTN, elevated pro BNP, CXR- no evidence of congestion , no clinical evidence of CHF exacerbation anemia - monitor HH, CEA WNL, check stool OB, anemia workup with low iron, s/p Venofer x 1 10/10 obesity electrolyte imbalance ( hypo Na, hypo K) - IVF with Na and K, stable this am severe pulmonary HTN hyperlipidemia -lipid panel with elevated LDL, added low dose of statin moderate MR dc plan soon case discussed and evaluated by supervising physician Subjective Allergies: Coded Allergies: No Known Allergies (Unverified , 10/08/16) Subjective denies chest pain, less cough, no wheezing, no hemoptysis afebrile, no leucocytosis on RA pulse oximetry stable K stable after replacement Objective Last 24 Hour Vital Signs Date Time Temp Pulse Resp B/P Pulse Ox O2 Delivery O2 Flow Rate FiO2 10/11/16 08:48 84 10/11/16 08:00 96.8 86 19 113/59 99 Room Air 10/11/16 04:00 97.0 100 20 116/69 100 Room Air 10/11/16 04:00 101 10/11/16 00:08 97.0 106 20 110/55 98 Room Air 10/11/16 00:00 106 110 106 10/11/16 00:00 88 10/10/16 20:00 97.7 88 18 121/68 98 Room Air 10/10/16 20:00 83 10/10/16 19:58 101 18 Room Air 21 10/10/16 16:00 96 10/10/16 16:00 97.7 124 20 120/65 98 Room Air 10/10/16 16:00 124 97 105 10/10/16 12:00 80 101 96 10/10/16 12:00 81 10/10/16 12:00 97.7 83 17 104/58 97 Room Air Intake and Output 10/10/16 10/11/16 19:00 07:00 Intake Total 994.160 ml 433.984 ml Balance 994.160 ml 433.984 ml Intake Oral 630 ml IV Total 364.160 ml 433.984 ml # Voids 3 3 # Bowel Movements 1 Objective General Appearance: WD/WN, no acute distress, other - awake, alert, Frisian speaking obese elderly female HEENT: normocephalic, atraumatic, anicteric, mucous membranes moist Respiratory/Chest: few scattered expiratory wheezes, Cardiovascular: normal rate, irregularly irregular A fib on tele Abdomen: normal bowel sounds, soft, non tender - obese Genitourinary: normal external genitalia Neurologic/Psychiatric: no motor/sensory deficits, alert, responsive Laboratory Tests 10/10/16 16:25: Activated Partial Thromboplast Time 93H 10/10/16 17:05: Urine Color Yellow, Urine Appearance Clear, Urine pH 7, Urine Specific [place] 1.010, Urine Protein Negative, Urine Glucose (UA) Negative, Urine Ketones Negative, Urine Occult Blood Negative, Urine Nitrite Negative, Urine Bilirubin Negative, Urine Urobilinogen Normal, Urine Leukocyte Esterase Negative, Urine RBC 0, Urine WBC 0-2, Urine Squamous Epithelial Cells ModerateH, Urine Bacteria None, Urine Osmolality [Pending], Urine Random Sodium 16 10/11/16 04:00: Activated Partial Thromboplast Time 76H, White Blood Count 6.4, Red Blood Count 4.39, Hemoglobin 10.0L, Hematocrit 32.2L, Mean Corpuscular Volume 73L, Mean Corpuscular Hemoglobin 22.7L, Mean Corpuscular Hemoglobin Concent 31.0L, Red Cell Distribution Width 16.6H, Platelet Count 361, Mean Platelet Volume 5.7L, Neutrophils (%) (Auto) 55.8, Lymphocytes (%) (Auto) 26.4, Monocytes (%) (Auto) 13.6H, Eosinophils (%) (Auto) 1.8, Basophils (%) (Auto) 2.4H, Prothrombin Time 14.7H, Prothromb Time International Ratio 1.4H, Sodium Level 132L, Potassium Level 4.4, Chloride Level 92L, Carbon Dioxide Level 28, Anion Gap 12, Blood Urea Nitrogen 9, Creatinine 0.5, Estimat Glomerular Filtration Rate , Glucose Level 116H, Calcium Level 8.6, Magnesium Level 1.8, Digoxin Level 0.9 10/11/16 04:20: Stool Occult Blood [Pending] Current Medications Medications (Trade) Dose Ordered Sig/Abby Route PRN Reason Start Time Stop Time Status Last Admin Dose Admin Acetaminophen (Tylenol) 650 mg Q4H PRN ORAL FEVER 10/08/16 23:45 11/07/16 23:44 Albuterol/ Ipratropium (DuoNeb 0.5-3(2.5)mg/3ml) 3 ml Q4H PRN HHN Shortness of Breath 10/08/16 23:45 10/13/16 23:44 10/09/16 11:44 Atorvastatin Calcium 10 mg 10 mg BEDTIME ORAL 10/10/16 21:00 11/09/16 20:59 10/10/16 20:21 Digoxin 0.25 mg 0.25 mg DAILY ORAL 10/09/16 18:00 11/08/16 17:59 10/11/16 08:48 Diltiazem HCl (Cardizem) 10 mg EVERY HOUR PRN IV heart rate more than 120, 10/08/16 23:45 11/07/16 23:44 Guaifenesin/ Dextromethorphan (Robitussin DM) 5 ml Q4H PRN ORAL For Cough 10/09/16 09:30 11/08/16 09:29 10/11/16 08:45 Heparin Sodium/ Dextrose (Heparin) 500 ml @ 27.832 mls/ hr adjust per protocol IV 10/11/16 05:15 11/10/16 05:14 10/11/16 05:22 Levofloxacin (Levaquin) 100 ml @ 100 mls/hr Q24H IVPB 10/09/16 20:00 10/16/16 19:59 10/10/16 20:21 Metoprolol Tartrate (Lopressor) 5 mg EVERY HOUR PRN IVP heart rate more than 140 10/08/16 23:45 11/07/16 23:44 Nitroglycerin (Ntg) 0.4 mg Every 5 Minutes PRN SL Prn Chest Pain 10/08/16 23:45 11/07/16 23:44 Ondansetron HCl (Zofran) 4 mg Q6H PRN IVP Nausea & Vomiting 10/08/16 23:45 11/07/16 23:44 Pantoprazole (Protonix) 40 mg DAILY ORAL 10/09/16 09:00 11/08/16 08:59 10/11/16 08:46 Polyethylene Glycol (Miralax) 17 gm DAILYPRN PRN ORAL Constipation 10/08/16 23:45 11/07/16 23:44 Temazepam (Restoril) 15 mg HSPRN PRN ORAL Insomnia 10/08/16 23:45 10/15/16 23:44 Warfarin Sodium (Coumadin per pharmacy) 1 ea DAILY PRN MISC Per rx protocol 10/09/16 16:15 11/08/16 16:14 [place] ([facility])Eneida NP Oct 11, 2016 10:32
[2016-10-11] MEDS ORDERED: DuoNeb 0.5-3(2.5)mg/3ml neb HHN PRN (11:45)
[2016-10-11 12:00] VITALS: BP 106/66
--- NOTE | 2016-10-11 12:19 | Internal Med Progress Note ---
Subjective Date of Service: Oct 11, 2016 Physician Name Eliza Lin Attending Physician Elliot Ann MD Current Medications Medications (Trade) Dose Ordered Sig/Abby Route PRN Reason Start Time Stop Time Status Last Admin Dose Admin Acetaminophen (Tylenol) 650 mg Q4H PRN ORAL FEVER 10/08/16 23:45 11/07/16 23:44 Albuterol/ Ipratropium (DuoNeb 0.5-3(2.5)mg/3ml) 3 ml Q4H PRN HHN Shortness of Breath 10/11/16 11:45 10/16/16 23:59 Atorvastatin Calcium 10 mg 10 mg BEDTIME ORAL 10/10/16 21:00 11/09/16 20:59 10/10/16 20:21 Digoxin 0.25 mg 0.25 mg DAILY ORAL 10/09/16 18:00 11/08/16 17:59 10/11/16 08:48 Diltiazem HCl (Cardizem) 10 mg EVERY HOUR PRN IV heart rate more than 120, 10/08/16 23:45 11/07/16 23:44 Guaifenesin/ Dextromethorphan (Robitussin DM) 5 ml Q4H PRN ORAL For Cough 10/09/16 09:30 11/08/16 09:29 10/11/16 08:45 Heparin Sodium/ Dextrose (Heparin) 500 ml @ 27.832 mls/ hr adjust per protocol IV 10/11/16 05:15 11/10/16 05:14 10/11/16 05:22 Levofloxacin (Levaquin) 100 ml @ 100 mls/hr Q24H IVPB 10/09/16 20:00 10/16/16 19:59 10/10/16 20:21 Metoprolol Tartrate (Lopressor) 5 mg EVERY HOUR PRN IVP heart rate more than 140 10/08/16 23:45 11/07/16 23:44 Nitroglycerin (Ntg) 0.4 mg Every 5 Minutes PRN SL Prn Chest Pain 10/08/16 23:45 11/07/16 23:44 Ondansetron HCl (Zofran) 4 mg Q6H PRN IVP Nausea & Vomiting 10/08/16 23:45 11/07/16 23:44 Pantoprazole (Protonix) 40 mg DAILY ORAL 10/09/16 09:00 11/08/16 08:59 10/11/16 08:46 Polyethylene Glycol (Miralax) 17 gm DAILYPRN PRN ORAL Constipation 10/08/16 23:45 11/07/16 23:44 Temazepam (Restoril) 15 mg HSPRN PRN ORAL Insomnia 10/08/16 23:45 10/15/16 23:44 Warfarin Sodium (Coumadin per pharmacy) 1 ea DAILY PRN MISC Per rx protocol 10/09/16 16:15 11/08/16 16:14 Allergies: Coded Allergies: No Known Allergies (Unverified , 10/08/16) ROS Limited/Unobtainable: No Constitutional: Reports: no symptoms HEENT: Reports: no symptoms Cardiovascular: Reports: no symptoms Respiratory: Reports: cough, shortness of breath Gastrointestinal/Abdominal: Reports: no symptoms Genitourinary: Reports: no symptoms Neurologic/Psychiatric: Reports: no symptoms Subjective 75 YO F admitted with shortness of breath and atrial fibrillation with rapid ventricular rate. Cover for [facility]aldo-Dr Ann. Objective Last Vital Signs Date Time Temp Pulse Resp B/P Pulse Ox O2 Delivery O2 Flow Rate FiO2 10/11/16 08:48 84 10/11/16 08:00 18 Room Air 21 10/11/16 08:00 96.8 113/59 99 10/09/16 12:00 2.0 Laboratory Tests Test 10/10/16 16:25 10/10/16 17:05 10/11/16 04:00 10/11/16 04:20 Activated Partial Thromboplast Time 93 SEC (23-33) H 76 SEC (23-33) H Urine Color Yellow Urine Appearance Clear Urine pH 7 (4.5-8.0) Urine Specific [place] 1.010 (1.005-1.035) Urine Protein Negative (NEGATIVE) Urine Glucose (UA) Negative (NEGATIVE) Urine Ketones Negative (NEGATIVE) Urine Occult Blood Negative (NEGATIVE) Urine Nitrite Negative (NEGATIVE) Urine Bilirubin Negative (NEGATIVE) Urine Urobilinogen Normal MG/DL (0.0-1.0) Urine Leukocyte Esterase Negative (NEGATIVE) Urine RBC 0 /HPF (0 - 2) Urine WBC 0-2 /HPF (0 - 2) Urine Squamous Epithelial Cells Moderate /LPF (NONE/OCC) H Urine Bacteria None /HPF (NONE) Urine Osmolality Pending Urine Random Sodium 16 mmol/L White Blood Count 6.4 K/UL (4.8-10.8) Red Blood Count 4.39 M/UL (4.20-5.40) Hemoglobin 10.0 G/DL (12.0-16.0) L Hematocrit 32.2 % (37.0-47.0) L Mean Corpuscular Volume 73 FL (80-99) L Mean Corpuscular Hemoglobin 22.7 PG (27.0-31.0) L Mean Corpuscular Hemoglobin Concent 31.0 G/DL (32.0-36.0) L Red Cell Distribution Width 16.6 % (11.6-14.8) H Platelet Count 361 K/UL (150-450) Mean Platelet Volume 5.7 FL (6.5-10.1) L Neutrophils (%) (Auto) 55.8 % (45.0-75.0) Lymphocytes (%) (Auto) 26.4 % (20.0-45.0) Monocytes (%) (Auto) 13.6 % (1.0-10.0) H Eosinophils (%) (Auto) 1.8 % (0.0-3.0) Basophils (%) (Auto) 2.4 % (0.0-2.0) H Prothrombin Time 14.7 SEC (9.30-11.50) H Prothromb Time International Ratio 1.4 (0.9-1.1) H Sodium Level 132 mEQ/L (135-145) L Potassium Level 4.4 mEQ/L (3.4-4.9) Chloride Level 92 mEQ/L (98-107) L Carbon Dioxide Level 28 mEQ/L (20-30) Anion Gap 12 (5-15) Blood Urea Nitrogen 9 mg/dL (7-23) Creatinine 0.5 mg/dL (0.5-0.9) Estimat Glomerular Filtration Rate mL/min (>60) Glucose Level 116 mg/dL (74-106) H Calcium Level 8.6 mg/dL (8.6-10.2) Magnesium Level 1.8 mg/dL (1.7-2.5) Digoxin Level 0.9 ng/mL (0.5-2.0) Stool Occult Blood Negative (NEGATIVE) Intake and Output 10/10/16 10/11/16 19:00 07:00 Intake Total 994.160 ml 433.984 ml Balance 994.160 ml 433.984 ml Intake Oral 630 ml IV Total 364.160 ml 433.984 ml # Voids 3 3 # Bowel Movements 1 Objective General Appearance: WD/WN, no apparent distress, obese EENT: PERRL/EOMI, normal ENT inspection Neck: non-tender, normal alignment, supple Cardiovascular: normal peripheral pulses, no gallop/murmur, no JVD, irregularly irregular Respiratory/Chest: chest wall non-tender, crackles/rales, rhonchi - bilaterally , expiratory wheezing Abdomen: normal bowel sounds, non tender, soft, no organomegaly, no mass Extremities: normal range of motion, non-tender 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 cont NS IV (6) Hypokalemia (7) Atrial fibrillation with rapid ventricular response Assessment & Plan: See cardiology note. On coumadin and digoxin. (8) Obesity (BMI 30-39.9) (9) Bronchitis Assessment & Plan: Cont levaquin Status: progressing ELIZA LIN Oct 11, 2016 12:19
[2016-10-11 16:00] VITALS: BP 102/49
--- NOTE | 2016-10-11 16:16 | Cardiology Progress Note ---
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 Subjective Subjective the patient is complaining on dyspnea with exertion no PND or orthopnea overall feels better granddaughter at the bedside Objective Last 24 Hour Vital Signs Date Time Temp Pulse Resp B/P Pulse Ox O2 Delivery O2 Flow Rate FiO2 10/11/16 12:00 97.2 88 17 106/66 98 Room Air 10/11/16 12:00 86 10/11/16 09:00 84 82 86 10/11/16 08:48 84 10/11/16 08:00 89 10/11/16 08:00 89 18 Room Air 21 10/11/16 08:00 96.8 86 19 113/59 99 Room Air 10/11/16 04:00 97.0 100 20 116/69 100 Room Air 10/11/16 04:00 101 10/11/16 00:08 97.0 106 20 110/55 98 Room Air 10/11/16 00:00 106 110 106 10/11/16 00:00 88 10/10/16 20:00 97.7 88 18 121/68 98 Room Air 10/10/16 20:00 83 10/10/16 19:58 101 18 Room Air 21 General Appearance: alert EENT: PERRL/EOMI Neck: no JVD Rhythm: Afib Cardiovascular: tachycardia Respiratory/Chest: decreased breath sounds Abdomen: non tender, soft Extremities: no swelling Intake and Output 10/10/16 10/11/16 19:00 07:00 Intake Total 994.160 ml 433.984 ml Balance 994.160 ml 433.984 ml Intake Oral 630 ml IV Total 364.160 ml 433.984 ml # Voids 3 3 # Bowel Movements 1 Laboratory Tests Test 10/10/16 16:25 10/10/16 17:05 10/11/16 04:00 10/11/16 04:20 Activated Partial Thromboplast Time 93 SEC (23-33) H 76 SEC (23-33) H Urine Color Yellow Urine Appearance Clear Urine pH 7 (4.5-8.0) Urine Specific [place] 1.010 (1.005-1.035) Urine Protein Negative (NEGATIVE) Urine Glucose (UA) Negative (NEGATIVE) Urine Ketones Negative (NEGATIVE) Urine Occult Blood Negative (NEGATIVE) Urine Nitrite Negative (NEGATIVE) Urine Bilirubin Negative (NEGATIVE) Urine Urobilinogen Normal MG/DL (0.0-1.0) Urine Leukocyte Esterase Negative (NEGATIVE) Urine RBC 0 /HPF (0 - 2) Urine WBC 0-2 /HPF (0 - 2) Urine Squamous Epithelial Cells Moderate /LPF (NONE/OCC) H Urine Bacteria None /HPF (NONE) Urine Osmolality Pending Urine Random Sodium 16 mmol/L White Blood Count 6.4 K/UL (4.8-10.8) Red Blood Count 4.39 M/UL (4.20-5.40) Hemoglobin 10.0 G/DL (12.0-16.0) L Hematocrit 32.2 % (37.0-47.0) L Mean Corpuscular Volume 73 FL (80-99) L Mean Corpuscular Hemoglobin 22.7 PG (27.0-31.0) L Mean Corpuscular Hemoglobin Concent 31.0 G/DL (32.0-36.0) L Red Cell Distribution Width 16.6 % (11.6-14.8) H Platelet Count 361 K/UL (150-450) Mean Platelet Volume 5.7 FL (6.5-10.1) L Neutrophils (%) (Auto) 55.8 % (45.0-75.0) Lymphocytes (%) (Auto) 26.4 % (20.0-45.0) Monocytes (%) (Auto) 13.6 % (1.0-10.0) H Eosinophils (%) (Auto) 1.8 % (0.0-3.0) Basophils (%) (Auto) 2.4 % (0.0-2.0) H Prothrombin Time 14.7 SEC (9.30-11.50) H Prothromb Time International Ratio 1.4 (0.9-1.1) H Sodium Level 132 mEQ/L (135-145) L Potassium Level 4.4 mEQ/L (3.4-4.9) Chloride Level 92 mEQ/L (98-107) L Carbon Dioxide Level 28 mEQ/L (20-30) Anion Gap 12 (5-15) Blood Urea Nitrogen 9 mg/dL (7-23) Creatinine 0.5 mg/dL (0.5-0.9) Estimat Glomerular Filtration Rate mL/min (>60) Glucose Level 116 mg/dL (74-106) H Calcium Level 8.6 mg/dL (8.6-10.2) Magnesium Level 1.8 mg/dL (1.7-2.5) Digoxin Level 0.9 ng/mL (0.5-2.0) Stool Occult Blood Negative (NEGATIVE) SARAH ARCINIEGA Oct 11, 2016 16:16
[2016-10-11] MEDS ORDERED: Warfarin Sodium 4mg PO ONE (19:30)
[2016-10-11 20:00] VITALS: BP 126/58
[2016-10-12] VITALS: BP 135/57
[2016-10-12] MEDS: Heparin 25,000u/D5W 500ml 500 ML IV SCH ×3 (01:12→21:09)
[2016-10-12 04:00] VITALS: BP 121/65
[2016-10-12 04:38] LABS: BASOPHILS % (AUTO) 2.3 % (0.0-2.0); EOSINOPHILS % (AUTO) 3.4 % (0.0-3.0); LYMPHOCYTES % (AUTO) 20.8 % (20.0-45.0); MEAN CORPUSCULAR HEMOGLOBIN 22.7 PG (27.0-31.0); MEAN CORPUSCULAR HGB CONC 30.8 G/DL (32.0-36.0); MEAN CORPUSCULAR VOLUME 74 FL (80-99); MEAN PLATELET VOLUME 5.4 FL (6.5-10.1); MONOCYTES % (AUTO) 13.6 % (1.0-10.0); PLATELET COUNT 496 K/UL (150-450); RED BLOOD COUNT 4.39 M/UL (4.20-5.40); RED CELL DISTRIBUTION WIDTH 16.8 % (11.6-14.8); WHITE BLOOD COUNT 7.5 K/UL (4.8-10.8)
[2016-10-12] MEDS ORDERED: Heparin 25,000u/D5W 500ml 500 ML IV SCH (05:04)
[2016-10-12] MEDS ORDERED: Heparin 5000 units/ml inj IV ONE ×2 (05:15→21:00)
[2016-10-12 05:21] LABS: ANION GAP 14 (5-15); CALCIUM 9.1 mg/dL (8.6-10.2); CARBON DIOXIDE 29 mEQ/L (20-30); CHLORIDE 93 mEQ/L (98-107); CREATININE 0.6 mg/dL (0.5-0.9); HEMOLYSIS 1; INR 1.6 (0.9-1.1); POTASSIUM 3.5 mEQ/L (3.4-4.9); PROTHROMBIN TIME 16.3 SEC (9.30-11.50); SODIUM 136 mEQ/L (135-145)
[2016-10-12 08:10] VITALS: BP 119/62
[2016-10-12] MEDS: guaiFENesin DM 100mg/5ml ORAL PRN ×2 (08:54→13:33)
[2016-10-12 11:22] VITALS: BP 123/48
[2016-10-12 16:00] VITALS: BP 109/46
[2016-10-12] MEDS ORDERED: Warfarin Sodium 4mg PO SCH (17:00)
[2016-10-12 20:00] VITALS: BP 119/64
--- NOTE | 2016-10-12 21:00 | Cardiology Progress Note ---
Assessment/Plan Assessment/Plan afib unkown duration bronchitis dyspnea pulm htn obeisty electolyte abn hr contorled on dig avoid beta agonist agree with anticoagualtion abx for bronchitis dig / lwo dose dilt for hr contorl if needed kcl supplemetn home soon ? Subjective Cardiovascular: Denies: chest pain, lightheadedness Respiratory: Denies: shortness of breath Objective Last 24 Hour Vital Signs Date Time Temp Pulse Resp B/P Pulse Ox O2 Delivery O2 Flow Rate FiO2 10/12/16 20:00 97.4 82 21 119/64 98 Room Air 10/12/16 19:27 85 20 Room Air 21 10/12/16 17:00 80 89 88 10/12/16 16:00 111 10/12/16 16:00 97.0 95 20 109/46 95 Room Air 10/12/16 12:00 86 10/12/16 11:22 97.2 72 18 123/48 95 Room Air 10/12/16 10:10 100 10/12/16 10:05 91 10/12/16 10:00 102 10/12/16 08:46 101 10/12/16 08:10 96.4 86 18 119/62 96 Room Air 10/12/16 08:06 97 10/12/16 04:00 97.6 84 20 121/65 97 Room Air 10/12/16 04:00 76 10/12/16 02:49 150 110/63 10/12/16 01:00 95 82 84 10/12/16 00:00 91 10/12/16 00:00 97.9 95 18 135/57 96 Room Air General Appearance: no apparent distress, obese Cardiovascular: irregularly irregular Respiratory/Chest: lungs clear, normal breath sounds Abdomen: normal bowel sounds, non tender, soft Extremities: no swelling Intake and Output 10/11/16 10/12/16 19:00 07:00 Intake Total 654.824 ml Balance 654.824 ml Intake Oral 460 ml IV Total 194.824 ml # Voids 1 Laboratory Tests Test 10/12/16 03:50 10/12/16 11:35 10/12/16 19:50 White Blood Count 7.5 K/UL (4.8-10.8) Red Blood Count 4.39 M/UL (4.20-5.40) Hemoglobin 9.9 G/DL (12.0-16.0) L Hematocrit 32.3 % (37.0-47.0) L Mean Corpuscular Volume 74 FL (80-99) L Mean Corpuscular Hemoglobin 22.7 PG (27.0-31.0) L Mean Corpuscular Hemoglobin Concent 30.8 G/DL (32.0-36.0) L Red Cell Distribution Width 16.8 % (11.6-14.8) H Platelet Count 496 K/UL (150-450) H Mean Platelet Volume 5.4 FL (6.5-10.1) L Neutrophils (%) (Auto) 60.0 % (45.0-75.0) Lymphocytes (%) (Auto) 20.8 % (20.0-45.0) Monocytes (%) (Auto) 13.6 % (1.0-10.0) H Eosinophils (%) (Auto) 3.4 % (0.0-3.0) H Basophils (%) (Auto) 2.3 % (0.0-2.0) H Prothrombin Time 16.3 SEC (9.30-11.50) H Prothromb Time International Ratio 1.6 (0.9-1.1) H Activated Partial Thromboplast Time 60 SEC (23-33) H > 150 SEC (23-33) *H 59 SEC (23-33) H Sodium Level 136 mEQ/L (135-145) Potassium Level 3.5 mEQ/L (3.4-4.9) Chloride Level 93 mEQ/L (98-107) L Carbon Dioxide Level 29 mEQ/L (20-30) Anion Gap 14 (5-15) Blood Urea Nitrogen 11 mg/dL (7-23) Creatinine 0.6 mg/dL (0.5-0.9) Estimat Glomerular Filtration Rate mL/min (>60) Glucose Level 130 mg/dL (74-106) H Calcium Level 9.1 mg/dL (8.6-10.2) HEAVENLY MI Oct 12, 2016 21:00
[2016-10-13] VITALS (7 sets, daily range): BP systolic 98–140; BP diastolic 47–77
[2016-10-13 03:45] LABS: BASOPHILS % (AUTO) 1.9 % (0.0-2.0); EOSINOPHILS % (AUTO) 5.5 % (0.0-3.0); LYMPHOCYTES % (AUTO) 27.3 % (20.0-45.0); MEAN CORPUSCULAR HEMOGLOBIN 22.7 PG (27.0-31.0); MEAN CORPUSCULAR HGB CONC 30.8 G/DL (32.0-36.0); MEAN CORPUSCULAR VOLUME 74 FL (80-99); MEAN PLATELET VOLUME 5.3 FL (6.5-10.1); MONOCYTES % (AUTO) 11.3 % (1.0-10.0); PLATELET COUNT 492 K/UL (150-450); RED BLOOD COUNT 4.51 M/UL (4.20-5.40); RED CELL DISTRIBUTION WIDTH 17.1 % (11.6-14.8); WHITE BLOOD COUNT 7.3 K/UL (4.8-10.8)
[2016-10-13] MEDS ORDERED: Heparin 25,000u/D5W 500ml 500 ML IV SCH ×2 (05:30→06:15)
[2016-10-13 07:52] LABS: ANION GAP 14 (5-15); CALCIUM 8.7 mg/dL (8.6-10.2); CARBON DIOXIDE 28 mEQ/L (20-30); CHLORIDE 96 mEQ/L (98-107); CREATININE 0.6 mg/dL (0.5-0.9); HEMOLYSIS 3; POTASSIUM 3.8 mEQ/L (3.4-4.9); SODIUM 138 mEQ/L (135-145)
[2016-10-13] MEDS: Levofloxacin 500mg tab ORAL SCH (09:39)
[2016-10-13 12:06] LABS: INR 2.4 (0.9-1.1); PROTHROMBIN TIME 25.6 SEC (9.30-11.50)
--- NOTE | 2016-10-13 14:50 | Internal Med Progress Note ---
Subjective Date of Service: Oct 13, 2016 Physician Name Eliza Lin Attending Physician Elliot Ann MD Current Medications Medications (Trade) Dose Ordered Sig/Abby Route PRN Reason Start Time Stop Time Status Last Admin Dose Admin Acetaminophen (Tylenol) 650 mg Q4H PRN ORAL FEVER 10/08/16 23:45 11/07/16 23:44 Albuterol/ Ipratropium (DuoNeb 0.5-3(2.5)mg/3ml) 3 ml Q4H PRN HHN Shortness of Breath 10/11/16 11:45 10/16/16 23:59 Atorvastatin Calcium (Lipitor) 10 mg BEDTIME ORAL 10/10/16 21:00 11/09/16 20:59 10/12/16 21:07 Digoxin (Lanoxin) 0.25 mg DAILY ORAL 10/09/16 18:00 11/08/16 17:59 10/13/16 08:53 Diltiazem HCl (Cardizem) 10 mg EVERY HOUR PRN IV heart rate more than 120, 10/08/16 23:45 11/07/16 23:44 Guaifenesin/ Dextromethorphan (Robitussin DM) 5 ml Q4H PRN ORAL For Cough 10/09/16 09:30 11/08/16 09:29 10/12/16 13:33 Levofloxacin (Levaquin) 500 mg DAILY ORAL 10/13/16 09:00 10/20/16 08:59 10/13/16 09:39 Metoprolol Tartrate (Lopressor) 5 mg EVERY HOUR PRN IVP heart rate more than 140 10/08/16 23:45 11/07/16 23:44 10/12/16 02:49 Nitroglycerin (Ntg) 0.4 mg Every 5 Minutes PRN SL Prn Chest Pain 10/08/16 23:45 11/07/16 23:44 Ondansetron HCl (Zofran) 4 mg Q6H PRN IVP Nausea & Vomiting 10/08/16 23:45 11/07/16 23:44 Pantoprazole (Protonix) 40 mg DAILY ORAL 10/09/16 09:00 11/08/16 08:59 10/13/16 08:48 Polyethylene Glycol (Miralax) 17 gm DAILYPRN PRN ORAL Constipation 10/08/16 23:45 11/07/16 23:44 Temazepam (Restoril) 15 mg HSPRN PRN ORAL Insomnia 10/08/16 23:45 10/15/16 23:44 Warfarin Sodium (Coumadin per pharmacy) 1 ea DAILY PRN MISC Per rx protocol 10/09/16 16:15 11/08/16 16:14 Warfarin Sodium (Coumadin) 2.5 mg COUMADIN ONCE ORAL 10/13/16 17:00 10/13/16 17:01 Allergies: Coded Allergies: No Known Allergies (Unverified , 10/08/16) ROS Limited/Unobtainable: No Constitutional: Reports: no symptoms HEENT: Reports: no symptoms Cardiovascular: Reports: no symptoms Respiratory: Reports: shortness of breath Gastrointestinal/Abdominal: Reports: no symptoms Genitourinary: Reports: no symptoms Neurologic/Psychiatric: Reports: no symptoms Subjective 75 YO F admitted with shortness of breath and atrial fibrillation with rapid ventricular rate. Cover for [facility]-Dr Ann. Objective Last Vital Signs Date Time Temp Pulse Resp B/P Pulse Ox O2 Delivery O2 Flow Rate FiO2 10/13/16 12:19 97 10/13/16 11:24 96.7 20 118/66 98 Room Air 10/13/16 07:52 21 10/09/16 12:00 2.0 Laboratory Tests Test 10/12/16 19:50 10/13/16 03:00 10/13/16 04:00 10/13/16 11:30 Activated Partial Thromboplast Time 59 SEC (23-33) H 159 SEC (23-33) *H 62 SEC (23-33) H Sodium Level 138 mEQ/L (135-145) Potassium Level 3.8 mEQ/L (3.4-4.9) Chloride Level 96 mEQ/L (98-107) L Carbon Dioxide Level 28 mEQ/L (20-30) Anion Gap 14 (5-15) Blood Urea Nitrogen 12 mg/dL (7-23) Creatinine 0.6 mg/dL (0.5-0.9) Estimat Glomerular Filtration Rate mL/min (>60) Glucose Level 118 mg/dL (74-106) H Calcium Level 8.7 mg/dL (8.6-10.2) Pro-B-Type Natriuretic Peptide 2933 pg/mL (0-450) H White Blood Count 7.3 K/UL (4.8-10.8) Red Blood Count 4.51 M/UL (4.20-5.40) Hemoglobin 10.3 G/DL (12.0-16.0) L Hematocrit 33.3 % (37.0-47.0) L Mean Corpuscular Volume 74 FL (80-99) L Mean Corpuscular Hemoglobin 22.7 PG (27.0-31.0) L Mean Corpuscular Hemoglobin Concent 30.8 G/DL (32.0-36.0) L Red Cell Distribution Width 17.1 % (11.6-14.8) H Platelet Count 492 K/UL (150-450) H Mean Platelet Volume 5.3 FL (6.5-10.1) L Neutrophils (%) (Auto) 54.0 % (45.0-75.0) Lymphocytes (%) (Auto) 27.3 % (20.0-45.0) Monocytes (%) (Auto) 11.3 % (1.0-10.0) H Eosinophils (%) (Auto) 5.5 % (0.0-3.0) H Basophils (%) (Auto) 1.9 % (0.0-2.0) Prothrombin Time 25.6 SEC (9.30-11.50) H Prothromb Time International Ratio 2.4 (0.9-1.1) H Intake and Output 10/12/16 10/13/16 19:00 07:00 Intake Total 757.825 ml 520.087 ml Output Total 600 ml Balance 757.825 ml -79.913 ml Intake Oral 480 ml 260 ml IV Total 277.825 ml 260.087 ml Output Urine Total 600 ml # Voids 3 3 Objective General Appearance: WD/WN, no apparent distress, obese EENT: PERRL/EOMI, normal ENT inspection Neck: non-tender, normal alignment, supple Cardiovascular: normal peripheral pulses, no gallop/murmur, no JVD, irregularly irregular Respiratory/Chest: chest wall non-tender, crackles/rales, rhonchi - bilaterally , expiratory wheezing Abdomen: normal bowel sounds, non tender, soft, no organomegaly, no mass Extremities: normal range of motion, non-tender 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 cont NS IV (6) Hypokalemia (7) Atrial fibrillation with rapid ventricular response Assessment & Plan: See cardiology note. Coumadin therapeutic; D/C heparin. Continue digoxin. (8) Obesity (BMI 30-39.9) (9) Bronchitis Assessment & Plan: Cont levaquin Status: progressing ELIZA LIN Oct 13, 2016 14:50
[2016-10-13] MEDS ORDERED: Pneumococcal Vaccine 25mcg/0.5ml IM ONE (15:15)
--- NOTE | 2016-10-13 16:04 | Cardiology Progress Note ---
Assessment/Plan Assessment/Plan afib unkown duration bronchitis dyspnea pulm htn obeisty electolyte abn hr contorled on dig avoid beta agonist agree with anticoagualtion abx for bronchitis dig / lwo dose dilt for hr contorl if needed kcl supplemetn dc heparin as inr 2.4 keep on couamdin Objective Last 24 Hour Vital Signs Date Time Temp Pulse Resp B/P Pulse Ox O2 Delivery O2 Flow Rate FiO2 10/13/16 12:19 97 10/13/16 11:24 96.7 89 20 118/66 98 Room Air 10/13/16 08:53 74 10/13/16 07:59 83 10/13/16 07:52 79 20 Room Air 21 10/13/16 07:50 90 10/13/16 07:45 89 10/13/16 07:43 96.1 80 20 133/65 97 Room Air 10/13/16 07:40 99 10/13/16 04:10 97.0 72 20 140/77 98 Room Air 10/13/16 04:00 84 10/13/16 01:00 90 99 103 10/13/16 00:00 89 10/13/16 00:00 97.0 91 20 102/48 98 Room Air 10/12/16 21:00 95 10/12/16 20:00 97.4 82 21 119/64 98 Room Air 10/12/16 19:27 85 20 Room Air 21 10/12/16 17:00 80 89 88 Intake and Output 10/12/16 10/13/16 19:00 07:00 Intake Total 757.825 ml 520.087 ml Output Total 600 ml Balance 757.825 ml -79.913 ml Intake Oral 480 ml 260 ml IV Total 277.825 ml 260.087 ml Output Urine Total 600 ml # Voids 3 3 Laboratory Tests Test 10/12/16 19:50 10/13/16 03:00 10/13/16 04:00 10/13/16 11:30 Activated Partial Thromboplast Time 59 SEC (23-33) H 159 SEC (23-33) *H 62 SEC (23-33) H Sodium Level 138 mEQ/L (135-145) Potassium Level 3.8 mEQ/L (3.4-4.9) Chloride Level 96 mEQ/L (98-107) L Carbon Dioxide Level 28 mEQ/L (20-30) Anion Gap 14 (5-15) Blood Urea Nitrogen 12 mg/dL (7-23) Creatinine 0.6 mg/dL (0.5-0.9) Estimat Glomerular Filtration Rate mL/min (>60) Glucose Level 118 mg/dL (74-106) H Calcium Level 8.7 mg/dL (8.6-10.2) Pro-B-Type Natriuretic Peptide 2933 pg/mL (0-450) H White Blood Count 7.3 K/UL (4.8-10.8) Red Blood Count 4.51 M/UL (4.20-5.40) Hemoglobin 10.3 G/DL (12.0-16.0) L Hematocrit 33.3 % (37.0-47.0) L Mean Corpuscular Volume 74 FL (80-99) L Mean Corpuscular Hemoglobin 22.7 PG (27.0-31.0) L Mean Corpuscular Hemoglobin Concent 30.8 G/DL (32.0-36.0) L Red Cell Distribution Width 17.1 % (11.6-14.8) H Platelet Count 492 K/UL (150-450) H Mean Platelet Volume 5.3 FL (6.5-10.1) L Neutrophils (%) (Auto) 54.0 % (45.0-75.0) Lymphocytes (%) (Auto) 27.3 % (20.0-45.0) Monocytes (%) (Auto) 11.3 % (1.0-10.0) H Eosinophils (%) (Auto) 5.5 % (0.0-3.0) H Basophils (%) (Auto) 1.9 % (0.0-2.0) Prothrombin Time 25.6 SEC (9.30-11.50) H Prothromb Time International Ratio 2.4 (0.9-1.1) H HEAVENLY MI Oct 13, 2016 16:03
[2016-10-13] MEDS ORDERED: Warfarin Sodium 2.5mg ORAL ONE (17:00)
[2016-10-13] MEDS: guaiFENesin DM 100mg/5ml ORAL PRN ×2 (17:30→22:58)
[2016-10-14] VITALS: BP 108/49
[2016-10-14 04:05] VITALS: BP 131/87
[2016-10-14 07:30] LABS: BASOPHILS % (AUTO) 2.4 % (0.0-2.0); EOSINOPHILS % (AUTO) 5.1 % (0.0-3.0); LYMPHOCYTES % (AUTO) 20.4 % (20.0-45.0); MEAN CORPUSCULAR HEMOGLOBIN 22.6 PG (27.0-31.0); MEAN CORPUSCULAR HGB CONC 30.2 G/DL (32.0-36.0); MEAN CORPUSCULAR VOLUME 75 FL (80-99); MEAN PLATELET VOLUME 5.2 FL (6.5-10.1); MONOCYTES % (AUTO) 12.6 % (1.0-10.0); NEUTROPHILS % (AUTO) 59.5 % (45.0-75.0); PLATELET COUNT 404 K/UL (150-450); RED BLOOD COUNT 4.34 M/UL (4.20-5.40); RED CELL DISTRIBUTION WIDTH 17.4 % (11.6-14.8)
[2016-10-14 07:33] LABS: INR 2.6 (0.9-1.1); PROTHROMBIN TIME 27.3 SEC (9.30-11.50)
[2016-10-14 07:44] LABS: ANION GAP 11 (5-15); CALCIUM 9.1 mg/dL (8.6-10.2); CARBON DIOXIDE 30 mEQ/L (20-30); CHLORIDE 98 mEQ/L (98-107); CREATININE 0.6 mg/dL (0.5-0.9); HEMOLYSIS 1; POTASSIUM 3.9 mEQ/L (3.4-4.9); SODIUM 139 mEQ/L (135-145)
[2016-10-14 08:00] VITALS: BP 130/90
[2016-10-14] MEDS: Levofloxacin 500mg tab ORAL SCH (09:03)
[2016-10-14] MEDS: guaiFENesin DM 100mg/5ml ORAL PRN ×2 (09:08→13:59)
--- NOTE | 2016-10-14 12:28 | Internal Med Progress Note ---
Subjective Date of Service: Oct 14, 2016 Physician Name Eliza Lin Attending Physician Elliot Ann MD Current Medications Medications (Trade) Dose Ordered Sig/Abby Route PRN Reason Start Time Stop Time Status Last Admin Dose Admin Acetaminophen (Tylenol) 650 mg Q4H PRN ORAL FEVER 10/08/16 23:45 11/07/16 23:44 Albuterol/ Ipratropium (DuoNeb 0.5-3(2.5)mg/3ml) 3 ml Q4H PRN HHN Shortness of Breath 10/11/16 11:45 10/16/16 23:59 Atorvastatin Calcium (Lipitor) 10 mg BEDTIME ORAL 10/10/16 21:00 11/09/16 20:59 10/13/16 20:48 Digoxin (Lanoxin) 0.25 mg DAILY ORAL 10/09/16 18:00 11/08/16 17:59 10/14/16 09:03 Diltiazem HCl (Cardizem) 10 mg EVERY HOUR PRN IV heart rate more than 120, 10/08/16 23:45 11/07/16 23:44 Guaifenesin/ Dextromethorphan (Robitussin DM) 5 ml Q4H PRN ORAL For Cough 10/09/16 09:30 11/08/16 09:29 10/14/16 09:08 Levofloxacin (Levaquin) 500 mg DAILY ORAL 10/13/16 09:00 10/20/16 08:59 10/14/16 09:03 Metoprolol Tartrate (Lopressor) 5 mg EVERY HOUR PRN IVP heart rate more than 140 10/08/16 23:45 11/07/16 23:44 10/12/16 02:49 Nitroglycerin (Ntg) 0.4 mg Every 5 Minutes PRN SL Prn Chest Pain 10/08/16 23:45 11/07/16 23:44 Ondansetron HCl (Zofran) 4 mg Q6H PRN IVP Nausea & Vomiting 10/08/16 23:45 11/07/16 23:44 Pantoprazole (Protonix) 40 mg DAILY ORAL 10/09/16 09:00 11/08/16 08:59 10/14/16 09:03 Polyethylene Glycol (Miralax) 17 gm DAILYPRN PRN ORAL Constipation 10/08/16 23:45 11/07/16 23:44 Temazepam (Restoril) 15 mg HSPRN PRN ORAL Insomnia 10/08/16 23:45 10/15/16 23:44 Warfarin Sodium (Coumadin per pharmacy) 1 ea DAILY PRN MISC Per rx protocol 10/09/16 16:15 11/08/16 16:14 Warfarin Sodium (Coumadin) 2.5 mg COUMADIN ORAL 10/14/16 17:00 10/14/16 17:01 Allergies: Coded Allergies: No Known Allergies (Unverified , 10/08/16) ROS Limited/Unobtainable: No Constitutional: Reports: no symptoms HEENT: Reports: no symptoms Cardiovascular: Reports: no symptoms Respiratory: Reports: cough, shortness of breath Gastrointestinal/Abdominal: Reports: no symptoms Genitourinary: Reports: no symptoms Neurologic/Psychiatric: Reports: no symptoms Subjective 75 YO F admitted with shortness of breath and atrial fibrillation with rapid ventricular rate. Cover for [facility]aldo-Dr Ann. Objective Last Vital Signs Date Time Temp Pulse Resp B/P Pulse Ox O2 Delivery O2 Flow Rate FiO2 10/14/16 09:03 71 10/14/16 08:00 96.9 17 130/90 97 Room Air 10/14/16 00:00 2.0 10/13/16 19:00 21 Laboratory Tests Test 10/14/16 06:20 White Blood Count 6.0 K/UL (4.8-10.8) Red Blood Count 4.34 M/UL (4.20-5.40) Hemoglobin 9.8 G/DL (12.0-16.0) L Hematocrit 32.4 % (37.0-47.0) L Mean Corpuscular Volume 75 FL (80-99) L Mean Corpuscular Hemoglobin 22.6 PG (27.0-31.0) L Mean Corpuscular Hemoglobin Concent 30.2 G/DL (32.0-36.0) L Red Cell Distribution Width 17.4 % (11.6-14.8) H Platelet Count 404 K/UL (150-450) Mean Platelet Volume 5.2 FL (6.5-10.1) L Neutrophils (%) (Auto) 59.5 % (45.0-75.0) Lymphocytes (%) (Auto) 20.4 % (20.0-45.0) Monocytes (%) (Auto) 12.6 % (1.0-10.0) H Eosinophils (%) (Auto) 5.1 % (0.0-3.0) H Basophils (%) (Auto) 2.4 % (0.0-2.0) H Prothrombin Time 27.3 SEC (9.30-11.50) H Prothromb Time International Ratio 2.6 (0.9-1.1) H Sodium Level 139 mEQ/L (135-145) Potassium Level 3.9 mEQ/L (3.4-4.9) Chloride Level 98 mEQ/L (98-107) Carbon Dioxide Level 30 mEQ/L (20-30) Anion Gap 11 (5-15) Blood Urea Nitrogen 11 mg/dL (7-23) Creatinine 0.6 mg/dL (0.5-0.9) Estimat Glomerular Filtration Rate mL/min (>60) Glucose Level 110 mg/dL (74-106) H Calcium Level 9.1 mg/dL (8.6-10.2) Pro-B-Type Natriuretic Peptide 2905 pg/mL (0-450) H Intake and Output 10/13/16 10/14/16 19:00 07:00 Intake Total 566.748 ml 300 ml Output Total 250 ml Balance 316.748 ml 300 ml Intake Oral 490 ml 300 ml IV Total 76.748 ml Output Urine Total 250 ml # Voids 1 5 Objective General Appearance: WD/WN, no apparent distress, obese EENT: PERRL/EOMI, normal ENT inspection Neck: non-tender, normal alignment, supple Cardiovascular: normal peripheral pulses, no gallop/murmur, no JVD, irregularly irregular Respiratory/Chest: chest wall non-tender, crackles/rales, rhonchi - bilaterally , expiratory wheezing Abdomen: normal bowel sounds, non tender, soft, no organomegaly, no mass Extremities: normal range of motion, non-tender 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 cont NS IV (6) Hypokalemia (7) Atrial fibrillation with rapid ventricular response Assessment & Plan: See cardiology note. Coumadin therapeutic; D/C heparin. Continue digoxin. (8) Obesity (BMI 30-39.9) (9) Bronchitis Assessment & Plan: Cont levaquin Status: progressing Assessment/Plan Discharge planning: [facility] on oral levaquin ELIZA LIN Oct 14, 2016 12:28
[2016-10-14] MEDS ORDERED: LIPITOR10 MG ORAL (12:33)
[2016-10-14] MEDS ORDERED: LEVAQUIN500 MG ORAL (12:33)
[2016-10-14] MEDS ORDERED: PROTONIX40 MG ORAL (12:33)
[2016-10-14] MEDS ORDERED: COUMADIN2.5 MG ORAL (12:33)
[2016-10-14] MEDS ORDERED: LANOXIN250 MCG ORAL (12:33)
[2016-10-14 12:48] VITALS: BP 94/54
--- NOTE | 2016-10-14 13:05 | Pulmonology Progress Note ---
Assessment/Plan Problems: (1) Acute exacerbation of CHF (congestive heart failure) (2) Obesity (BMI 30-39.9) (3) Atrial fibrillation with rapid ventricular response Assessment/Plan heart rate controlled on coumadine Subjective ROS Limited/Unobtainable: No Constitutional: Reports: no symptoms HEENT: Repors: no symptoms Respiratory: Reports: no symptoms Allergies: Coded Allergies: No Known Allergies (Unverified , 10/08/16) Objective Last 24 Hour Vital Signs Date Time Temp Pulse Resp B/P Pulse Ox O2 Delivery O2 Flow Rate FiO2 10/14/16 12:48 96.7 92 17 94/54 96 Room Air 10/14/16 09:03 71 10/14/16 08:54 92 86 105 10/14/16 08:00 96.9 71 17 130/90 97 Room Air 10/14/16 07:55 82 10/14/16 04:05 97.0 119 20 131/87 96 Room Air 10/14/16 04:00 74 10/14/16 00:00 97.0 106 20 108/49 95 Nasal Cannula 2.0 10/14/16 00:00 100 93 100 10/14/16 00:00 83 10/13/16 22:00 98.2 90 18 125/70 96 Room Air 10/13/16 20:00 97.0 91 18 98/47 97 Room Air 10/13/16 20:00 80 10/13/16 19:00 71 18 Room Air 21 10/13/16 16:00 91 10/13/16 16:00 79 83 84 10/13/16 16:00 97.9 79 19 126/70 Nasal Cannula 2.0 99 Intake and Output 10/13/16 10/14/16 19:00 07:00 Intake Total 566.748 ml 300 ml Output Total 250 ml Balance 316.748 ml 300 ml Intake Oral 490 ml 300 ml IV Total 76.748 ml Output Urine Total 250 ml # Voids 1 5 General Appearance: WD/WN HEENT: normocephalic, atraumatic Respiratory/Chest: chest wall non-tender, lungs clear Breasts: no masses Cardiovascular: normal peripheral pulses Abdomen: normal bowel sounds, soft, non tender Genitourinary: normal external genitalia Extremities: no cyanosis Skin: no rash Laboratory Tests 10/14/16 06:20: White Blood Count 6.0, Red Blood Count 4.34, Hemoglobin 9.8L, Hematocrit 32.4L, Mean Corpuscular Volume 75L, Mean Corpuscular Hemoglobin 22.6L, Mean Corpuscular Hemoglobin Concent 30.2L, Red Cell Distribution Width 17.4H, Platelet Count 404, Mean Platelet Volume 5.2L, Neutrophils (%) (Auto) 59.5, Lymphocytes (%) (Auto) 20.4, Monocytes (%) (Auto) 12.6H, Eosinophils (%) (Auto) 5.1H, Basophils (%) (Auto) 2.4H, Prothrombin Time 27.3H, Prothromb Time International Ratio 2.6H, Sodium Level 139, Potassium Level 3.9, Chloride Level 98, Carbon Dioxide Level 30, Anion Gap 11, Blood Urea Nitrogen 11, Creatinine 0.6, Estimat Glomerular Filtration Rate , Glucose Level 110H, Calcium Level 9.1 , Pro-B-Type Natriuretic Peptide 2905H Current Medications Medications (Trade) Dose Ordered Sig/Abby Route PRN Reason Start Time Stop Time Status Last Admin Dose Admin Acetaminophen (Tylenol) 650 mg Q4H PRN ORAL FEVER 10/08/16 23:45 11/07/16 23:44 Albuterol/ Ipratropium (DuoNeb 0.5-3(2.5)mg/3ml) 3 ml Q4H PRN HHN Shortness of Breath 10/11/16 11:45 10/16/16 23:59 Atorvastatin Calcium (Lipitor) 10 mg BEDTIME ORAL 10/10/16 21:00 11/09/16 20:59 10/13/16 20:48 Digoxin (Lanoxin) 0.25 mg DAILY ORAL 10/09/16 18:00 11/08/16 17:59 10/14/16 09:03 Diltiazem HCl (Cardizem) 10 mg EVERY HOUR PRN IV heart rate more than 120, 10/08/16 23:45 11/07/16 23:44 Guaifenesin/ Dextromethorphan (Robitussin DM) 5 ml Q4H PRN ORAL For Cough 10/09/16 09:30 11/08/16 09:29 10/14/16 09:08 Levofloxacin (Levaquin) 500 mg DAILY ORAL 10/13/16 09:00 10/20/16 08:59 10/14/16 09:03 Metoprolol Tartrate (Lopressor) 5 mg EVERY HOUR PRN IVP heart rate more than 140 10/08/16 23:45 11/07/16 23:44 10/12/16 02:49 Nitroglycerin (Ntg) 0.4 mg Every 5 Minutes PRN SL Prn Chest Pain 10/08/16 23:45 11/07/16 23:44 Ondansetron HCl (Zofran) 4 mg Q6H PRN IVP Nausea & Vomiting 10/08/16 23:45 11/07/16 23:44 Pantoprazole (Protonix) 40 mg DAILY ORAL 10/09/16 09:00 11/08/16 08:59 10/14/16 09:03 Polyethylene Glycol (Miralax) 17 gm DAILYPRN PRN ORAL Constipation 10/08/16 23:45 11/07/16 23:44 Temazepam (Restoril) 15 mg HSPRN PRN ORAL Insomnia 10/08/16 23:45 10/15/16 23:44 Warfarin Sodium (Coumadin per pharmacy) 1 ea DAILY PRN MISC Per rx protocol 10/09/16 16:15 11/08/16 16:14 Warfarin Sodium (Coumadin) 2.5 mg COUMADIN ORAL 10/14/16 17:00 10/14/16 17:01 MEHRAN MENJIVAR Oct 14, 2016 13:05
[2016-10-14] MEDS ORDERED: Warfarin Sodium 2.5mg ORAL SCH (17:00)
--- NOTE | 2016-10-15 15:44 | Discharge Summary ---
Discharge Summary Hospital Course Date of Admission Oct 08, 2016 at 23:11 Date of Discharge Oct 14, 2016 at 14:25 Admitting Diagnosis Atrial fibrillation, congestive heart failure TAWANDA Gibson is a 75 year old female who was admitted on Oct 08, 2016 at 23: 11 for Atrial Fibrillation,Congestive Heart Failure Hospital Course [id number] Discharge Discharge Disposition Patient was discharged to Home with Home Health(06) Discharge Diagnoses: Serena Rhoades NP Oct 15, 2016 15:44
--- NOTE | 2016-10-16 01:48 | Discharge Summary 2 SIG ---
DATE OF ADMISSION: 10/08/2016 DATE OF DISCHARGE: 10/14/2016 CONSULTANTS: 1. Walter Black M.D. 2. Rick Eden M.D. BRIEF HOSPITAL COURSE: The patient is a 75-year-old, female, who came in complaining of cough and shortness of breath that began 3 weeks prior to admission. On evaluation at ED, she was found to be in atrial fibrillation with rapid ventricular rate and was admitted for cough and rapid atrial fibrillation. Chest x-ray revealed bibasilar parenchymal disease, otherwise normal. Pulmonary consultation was done and was started empirically on Levaquin and DuoNeb nebulizer treatments. Dr. Eden was consulted for atrial fibrillation. Echocardiogram showed ejection fraction of 60% to 65% with normal left ventricular systolic function, left ventricular hypertrophy, no aortic regurgitation, moderate right mitral regurgitation, normal left ventricular diastolic dysfunction, and tricuspid regurgitation. Pulmonary systolic pressure was 65. She was started on anticoagulation with heparin drip and Coumadin. She was given diltiazem for control of heart rate. Diuretics were discontinued due to electrolyte abnormalities. She was given Levaquin. Coumadin was therapeutic. Heparin was eventually discontinued. The patient was eventually discharged home with home health. FINAL DIAGNOSES: 1. Acute bronchitis. 2. Pleuritic chest pain. 3. Obesity. 4. Hypokalemia. 5. Hyponatremia. 6. Atrial fibrillation with rapid ventricular response. 7. Hypertension. 8. Acute exacerbation of diastolic congestive heart failure. 9. Pulmonary hypertension. 10. Atrial fibrillation of unknown duration. Kana Coffman M.D. I have been assigned to dictate discharge summary on this account and I was not involved in the patient's management. Serena Rhoades N.P. DR: RALPH JOB#: [id number] CC: CHARLIE
== END 2016-10-14 14:25 | disposition home health service (06) | DRG 308 ==
LOC: EMR 21:35 → 2E 23:11 → EDBEDREQ 23:13 → 2E 10-09 01:06
DX: I48.91 Unspecified atrial fibrillation (principal); I50.33 Acute on chronic diastolic (congestive) heart failure; I27.2 Other secondary pulmonary hypertension; Z68.41 Body mass index [BMI] 40.0-44.9, adult; E87.1 Hypo-osmolality and hyponatremia; D64.9 Anemia, unspecified; J20.9 Acute bronchitis, unspecified; E66.9 Obesity, unspecified; E87.6 Hypokalemia; E78.5 Hyperlipidemia, unspecified; I34.0 Nonrheumatic mitral (valve) insufficiency; I11.0 Hypertensive heart disease with heart failure; Z23 Encounter for immunization
CPT/HCPCS: 36415; 71010; 80048; 80053; 80061; 80162; 81001; 81003; 82270; 82378; 82533; 82607; 82746; 82962; 83540; 83550; 83615; 83735; 83880; 83930; 83935; 84300; 84439; 84443; 84481; 84484; 84550; 85007; 85025; 85044; 85060; 85610; 85651; 85730; 86140; 93005; 93306; 94640; 94664; J8499

== ENCOUNTER 2016-11-13 17:14 | Inpatient (IN) | payer MEDICAID ==
[~2016-11-13] VITALS: Ht 167.6 cm; Wt 107.7 kg
[~2016-11-13 17:14] MED LIST: COUMADIN2.5 MG ORAL; LANOXIN250 MCG ORAL; LEVAQUIN500 MG ORAL; LIPITOR10 MG ORAL; NKM; PROTONIX40 MG ORAL
[2016-11-13 17:41] VITALS: BP 129/81
[2016-11-13 18:53] LABS: BASOPHILS % (AUTO) 2.1 % (0.0-2.0); EOSINOPHILS % (AUTO) 3.2 % (0.0-3.0); LYMPHOCYTES % (AUTO) 23.9 % (20.0-45.0); MEAN CORPUSCULAR HEMOGLOBIN 22.2 PG (27.0-31.0); MEAN CORPUSCULAR HGB CONC 29.9 G/DL (32.0-36.0); MEAN CORPUSCULAR VOLUME 74 FL (80-99); MEAN PLATELET VOLUME 6.3 FL (6.5-10.1); MONOCYTES % (AUTO) 13.9 % (1.0-10.0); PLATELET COUNT 311 K/UL (150-450); RED BLOOD COUNT 5.08 M/UL (4.20-5.40); WHITE BLOOD COUNT 6.4 K/UL (4.8-10.8)
[2016-11-13 19:19] LABS: INR 3.5 (0.9-1.1)
[2016-11-13 19:32] LABS: TROPONIN I < 0.30 ng/mL (<=0.30)
[2016-11-13 19:35] LABS: ALANINE AMINOTRANSFERASE 13 U/L (3-33); ALBUMIN/GLOBULIN RATIO 1.4 (1.0-2.7); ANION GAP 16 (5-15); ASPARTATE AMINO TRANSFERASE 18 U/L (5-40); CALCIUM 8.9 mg/dL (8.6-10.2); CARBON DIOXIDE 26 mEQ/L (20-30); CHLORIDE 100 mEQ/L (98-107); CREATININE 0.8 mg/dL (0.5-0.9); HEMOLYSIS 9; POTASSIUM 3.8 mEQ/L (3.4-4.9); SODIUM 142 mEQ/L (135-145); TOTAL PROTEIN 6.4 g/dL (6.6-8.7)
[2016-11-13 19:46] LABS: DIGOXIN 0.8 ng/mL (0.5-2.0)
[2016-11-13 20:03] VITALS: BP 127/53
[2016-11-13 22:14] VITALS: BP 119/63
[2016-11-13] MEDS ORDERED: DuoNeb 0.5-3(2.5)mg/3ml neb HHN PRN (22:15)
[2016-11-13] MEDS ORDERED: Metoprolol 5mg/5ml Inj IVP PRN (22:15)
[2016-11-13] MEDS ORDERED: Diltiazem 25mg/5ml IV PRN (22:15)
[2016-11-13] MEDS ORDERED: Miralax 17gm pkt ORAL PRN (22:15)
[2016-11-13] MEDS ORDERED: Morphine Sulfate 2mg/ml Inj IVP PRN (22:15)
[2016-11-13] MEDS ORDERED: Nitroglycerin Subl 0.4mg tab (Bottle Of 25) SL PRN (22:15)
[2016-11-13 23:30] VITALS: BP 112/31
--- NOTE | 2016-11-14 00:42 | Emergency Room Report ---
History of Present Illness General Chief Complaint: General Complaint Source: Medical Record Present Illness HPI Patient is a 75-year-old female with prior history of congestive heart failure sent in primary care physician for evaluation after increased difficulty breathing as well as possible arrhythmia. Patient had been noted to have EKG which showed irregular rhythm. The patient was noted to have had been taking diuretics and had been run out of some her medications. She reported having some increased shortness of breath of as well as leg swelling. Allergies: Coded Allergies: No Known Allergies (Unverified , 10/08/16) Patient History Now: No Reviewed Nursing Documentation: PMH: Agreed, PSxH: Agreed Nursing Documentation-PMH Hx Cardiac Problems: Yes - A-Fib Hx Hypertension: Yes Hx Cancer: No Hx Gastrointestinal Problems: No Hx Neurological Problems: No Review of Systems All Other Systems: negative except mentioned in HPI Physical Exam Vital Signs Date Time Temp Pulse Resp B/P Pulse Ox O2 Delivery O2 Flow Rate FiO2 11/13/16 17:18 98.2 88 16 129/81 96 Room Air 11/13/16 23:30 2.0 Sp02 EP Interpretation: reviewed, normal General Appearance: normal inspection, alert, GCS 15, moderate distress Head: atraumatic ENT: normal ENT inspection, hearing grossly normal, normal voice Neck: normal inspection, full range of motion, supple, no bony tend Respiratory: normal inspection, no respiratory distress, no retraction, no wheezing, rhonchi Cardiovascular #1: regular rate, rhythm, edema Gastrointestinal: normal inspection, normal bowel sounds, non tender, soft, no guarding, no hernia Genitourinary: no CVA tenderness Musculoskeletal: normal inspection, back normal, normal range of motion Neurologic: normal inspection, alert, oriented x3, responsive, 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 The patient was noted to have EKG which showed atrial fibrillation with a rate [address] is [address] acute [address] or T wave changes noted. The patient was started on IV Lasix. The patient was noted to be taking digoxin.The patient was noted to have some improvement short of breath after Lasix.Dr. Elliot Ann was contacted for inpatient management. Labs Test 11/13/16 18:32 White Blood Count 6.4 K/UL (4.8-10.8) Red Blood Count 5.08 M/UL (4.20-5.40) Hemoglobin 11.3 G/DL (12.0-16.0) Hematocrit 37.8 % (37.0-47.0) Mean Corpuscular Volume 74 FL (80-99) Mean Corpuscular Hemoglobin 22.2 PG (27.0-31.0) Mean Corpuscular Hemoglobin Concent 29.9 G/DL (32.0-36.0) Red Cell Distribution Width 18.0 % (11.6-14.8) Platelet Count 311 K/UL (150-450) Mean Platelet Volume 6.3 FL (6.5-10.1) Neutrophils (%) (Auto) 57.0 % (45.0-75.0) Lymphocytes (%) (Auto) 23.9 % (20.0-45.0) Monocytes (%) (Auto) 13.9 % (1.0-10.0) Eosinophils (%) (Auto) 3.2 % (0.0-3.0) Basophils (%) (Auto) 2.1 % (0.0-2.0) Prothrombin Time 37.0 SEC (9.30-11.50) Prothromb Time International Ratio 3.5 (0.9-1.1) Activated Partial Thromboplast Time 39 SEC (23-33) Sodium Level 142 mEQ/L (135-145) Potassium Level 3.8 mEQ/L (3.4-4.9) Chloride Level 100 mEQ/L (98-107) Carbon Dioxide Level 26 mEQ/L (20-30) Anion Gap 16 (5-15) Blood Urea Nitrogen 14 mg/dL (7-23) Creatinine 0.8 mg/dL (0.5-0.9) Estimat Glomerular Filtration Rate mL/min (>60) Glucose Level 111 mg/dL (74-106) Calcium Level 8.9 mg/dL (8.6-10.2) Total Bilirubin 0.5 mg/dL (0.0-1.2) Aspartate Amino Transf (AST/SGOT) 18 U/L (5-40) Alanine Aminotransferase (ALT/SGPT) 13 U/L (3-33) Alkaline Phosphatase 72 U/L (35-104) Troponin I < 0.30 ng/mL (<=0.30) Pro-B-Type Natriuretic Peptide 1717 pg/mL (0-450) Total Protein 6.4 g/dL (6.6-8.7) Albumin 3.8 g/dL (3.5-5.2) Globulin 2.6 g/dL Albumin/Globulin Ratio 1.4 (1.0-2.7) Digoxin Level 0.8 ng/mL (0.5-2.0) Last Vital Signs Date Time Temp Pulse Resp B/P Pulse Ox O2 Delivery O2 Flow Rate FiO2 11/13/16 23:30 98.3 97 24 112/31 97 Nasal Cannula 2.0 Status: unchanged Disposition: ADMITTED INPATIENT Condition: Serious Referrals: JONNATHAN METZGER M.D. (PCP) Eligio Mcnally Nov 14, 2016 00:42
[2016-11-14 01:30] VITALS: BP 129/66
[2016-11-14] MEDS ORDERED: Pneumococcal Vaccine 25mcg/0.5ml IM ONE ×2 (03:45→09:00)
[2016-11-14 04:00] VITALS: BP 139/88
[2016-11-14 08:00] VITALS: BP 116/57
[2016-11-14 10:03] LABS: BASOPHILS % (AUTO) 1.1 % (0.0-2.0); EOSINOPHILS % (AUTO) 2.8 % (0.0-3.0); LYMPHOCYTES % (AUTO) 17.7 % (20.0-45.0); MEAN CORPUSCULAR HEMOGLOBIN 21.8 PG (27.0-31.0); MEAN CORPUSCULAR HGB CONC 29.6 G/DL (32.0-36.0); MEAN CORPUSCULAR VOLUME 73 FL (80-99); MEAN PLATELET VOLUME 6.2 FL (6.5-10.1); MONOCYTES % (AUTO) 8.6 % (1.0-10.0); NEUTROPHILS % (AUTO) 69.9 % (45.0-75.0); PLATELET COUNT 321 K/UL (150-450); RED BLOOD COUNT 5.51 M/UL (4.20-5.40); RED CELL DISTRIBUTION WIDTH 18.3 % (11.6-14.8); WHITE BLOOD COUNT 5.6 K/UL (4.8-10.8)
[2016-11-14 10:22] LABS: INR 3.5 (0.9-1.1); PROTHROMBIN TIME 36.6 SEC (9.30-11.50)
[2016-11-14 10:24] LABS: TROPONIN I < 0.30 ng/mL (<=0.30)
[2016-11-14 10:26] LABS: CHOLESTEROL 151 mg/dL (< 200); CHOLESTEROL/HDL RATIO 2.6 (3.3-4.4); CRP QUANT < 0.3 mg/dL (< 0.5); HEMOLYSIS 5; LDL CHOLESTEROL (CALC.) 72 mg/dL (60-99)
--- NOTE | 2016-11-14 10:29 | Consultation ---
History of Present Illness General Date patient seen: Nov 14, 2016 Chief Complaint: General Complaint Referring physician: Dr. Ann Reason for Consultation: dysnea Present Illness HPI 75-year-old female with prior history of congestive heart failure sent in primary care physician for evaluation of difficulty breathing as well as possible arrhythmia. Patient had been noted to have EKG which showed irregular rhythm. She has been in flutter and admitted to telemetry for further evaluation. Allergies: Coded Allergies: No Known Allergies (Unverified , 10/08/16) Medication History Scheduled Atorvastatin Calcium* (Lipitor*), 10 MG ORAL BEDTIME Digoxin* (Lanoxin*), 0.25 MG ORAL DAILY Levofloxacin* (Levaquin*), 500 MG ORAL DAILY Pantoprazole* (Protonix*), 40 MG ORAL DAILY Warfarin Sod* (Coumadin*), 2.5 MG ORAL COUMADIN Patient History Healthcare decision maker Resuscitation status Full Code Advanced Directive on File No Past Medical/Surgical History Past Medical/Surgical History: (1) Atrial fibrillation (2) Congestive cardiac failure (3) Shortness of breath Review of Systems Respiratory: Reports: orthopnea, shortness of breath Physical Exam General Appearance: WD/WN Lines, tubes and drains: peripheral, central line HEENT: normocephalic, atraumatic Neck: non-tender, normal alignment Respiratory/Chest: rhonchi - bilaterally Cardiovascular/Chest: normal peripheral pulses, irregularly irregular Abdomen: normal bowel sounds, non tender Genitourinary/Rectal: normal genital exam, normal rectal exam Extremities: normal range of motion Last 24 Hour Vital Signs Date Time Temp Pulse Resp B/P Pulse Ox O2 Delivery O2 Flow Rate FiO2 11/14/16 09:59 84 16 Room Air 21 11/14/16 08:37 85 11/14/16 08:00 96.9 86 17 116/57 97 Room Air 11/14/16 04:00 98.0 88 20 139/88 100 Nasal Cannula 2.0 11/14/16 03:55 83 11/14/16 03:05 86 11/14/16 02:15 98.2 96 22 129/66 100 Nasal Cannula 2.0 11/14/16 01:30 98.2 96 22 129/66 100 Nasal Cannula 2.0 11/13/16 23:30 98.3 97 24 112/31 97 Nasal Cannula 2.0 11/13/16 22:14 98.2 82 25 119/63 97 Room Air 11/13/16 20:03 98.2 96 16 127/53 96 Room Air 11/13/16 17:41 98.2 84 16 129/81 96 Room Air 11/13/16 17:18 98.2 88 16 129/81 96 Room Air Intake and Output 11/13/16 11/14/16 19:00 07:00 # Voids 1 2 Laboratory Tests Test 11/13/16 18:32 11/14/16 09:30 White Blood Count 6.4 K/UL (4.8-10.8) 5.6 K/UL (4.8-10.8) Red Blood Count 5.08 M/UL (4.20-5.40) 5.51 M/UL (4.20-5.40) H Hemoglobin 11.3 G/DL (12.0-16.0) L 12.0 G/DL (12.0-16.0) Hematocrit 37.8 % (37.0-47.0) 40.5 % (37.0-47.0) Mean Corpuscular Volume 74 FL (80-99) L 73 FL (80-99) L Mean Corpuscular Hemoglobin 22.2 PG (27.0-31.0) L 21.8 PG (27.0-31.0) L Mean Corpuscular Hemoglobin Concent 29.9 G/DL (32.0-36.0) L 29.6 G/DL (32.0-36.0) L Red Cell Distribution Width 18.0 % (11.6-14.8) H 18.3 % (11.6-14.8) H Platelet Count 311 K/UL (150-450) 321 K/UL (150-450) Mean Platelet Volume 6.3 FL (6.5-10.1) L 6.2 FL (6.5-10.1) L Neutrophils (%) (Auto) 57.0 % (45.0-75.0) 69.9 % (45.0-75.0) Lymphocytes (%) (Auto) 23.9 % (20.0-45.0) 17.7 % (20.0-45.0) L Monocytes (%) (Auto) 13.9 % (1.0-10.0) H 8.6 % (1.0-10.0) Eosinophils (%) (Auto) 3.2 % (0.0-3.0) H 2.8 % (0.0-3.0) Basophils (%) (Auto) 2.1 % (0.0-2.0) H 1.1 % (0.0-2.0) Prothrombin Time 37.0 SEC (9.30-11.50) H Pending Prothromb Time International Ratio 3.5 (0.9-1.1) H Pending Activated Partial Thromboplast Time 39 SEC (23-33) H Pending Sodium Level 142 mEQ/L (135-145) Potassium Level 3.8 mEQ/L (3.4-4.9) Chloride Level 100 mEQ/L (98-107) Carbon Dioxide Level 26 mEQ/L (20-30) Anion Gap 16 (5-15) H Blood Urea Nitrogen 14 mg/dL (7-23) Creatinine 0.8 mg/dL (0.5-0.9) Estimat Glomerular Filtration Rate mL/min (>60) Glucose Level 111 mg/dL (74-106) H Calcium Level 8.9 mg/dL (8.6-10.2) Total Bilirubin 0.5 mg/dL (0.0-1.2) Aspartate Amino Transf (AST/SGOT) 18 U/L (5-40) Alanine Aminotransferase (ALT/SGPT) 13 U/L (3-33) Alkaline Phosphatase 72 U/L (35-104) Troponin I < 0.30 ng/mL (<=0.30) Pending Pro-B-Type Natriuretic Peptide 1717 pg/mL (0-450) H Total Protein 6.4 g/dL (6.6-8.7) L Albumin 3.8 g/dL (3.5-5.2) Globulin 2.6 g/dL Albumin/Globulin Ratio 1.4 (1.0-2.7) Digoxin Level 0.8 ng/mL (0.5-2.0) C-Reactive Protein, Quantitative Pending Triglycerides Level Pending Cholesterol Level Pending LDL Cholesterol Pending HDL Cholesterol Pending Cholesterol/HDL Ratio Pending Thyroid Stimulating Hormone (TSH) Pending Height (Feet): 5 Height (Inches): 6.00 Weight (Pounds): 225 Medications Current Medications Medications (Trade) Dose Ordered Sig/Abby Route PRN Reason Start Time Stop Time Status Last Admin Dose Admin Acetaminophen (Tylenol) 650 mg Q4H PRN ORAL FEVER 11/13/16 22:15 12/13/16 22:14 Albuterol/ Ipratropium (DuoNeb 0.5-3(2.5)mg/3ml) 3 ml Q4H PRN HHN Shortness of Breath 11/13/16 22:15 11/18/16 22:14 Atorvastatin Calcium (Lipitor) 10 mg BEDTIME ORAL 11/14/16 21:00 12/14/16 20:59 Digoxin (Lanoxin) 0.25 mg DAILY ORAL 11/14/16 09:00 12/14/16 08:59 11/14/16 08:37 Diltiazem HCl (Cardizem) 10 mg Q1H PRN IV heart rate more than 120, 11/13/16 22:15 12/13/16 22:14 Metoprolol Tartrate (Lopressor) 5 mg Q1H PRN IVP heart rate more than 140 11/13/16 22:15 12/13/16 22:14 Morphine Sulfate (Morphine Sulfate) 2 mg Q4H PRN IVP severe Pain (Pain Scale 7-10) 11/13/16 22:15 11/20/16 22:14 Nitroglycerin (Ntg) 0.4 mg Q5M PRN SL Prn Chest Pain 11/13/16 22:15 12/13/16 22:14 Ondansetron HCl (Zofran) 4 mg Q6H PRN IVP Nausea & Vomiting 11/13/16 22:15 12/13/16 22:14 Pantoprazole (Protonix) 40 mg DAILY ORAL 11/14/16 09:00 12/14/16 08:59 11/14/16 08:37 Polyethylene Glycol (Miralax) 17 gm DAILYPRN PRN ORAL Constipation 11/13/16 22:15 12/13/16 22:14 Temazepam (Restoril) 15 mg HSPRN PRN ORAL Insomnia 11/13/16 22:15 11/20/16 22:14 Assessment/Plan Problem List: (1) Shortness of breath ICD Codes: R06.02 - Shortness of breath SNOMED: 574245590 (2) Atrial fibrillation ICD Codes: I48.91 - Unspecified atrial fibrillation SNOMED: 37328382 (3) Congestive cardiac failure ICD Codes: I50.9 - Heart failure, unspecified SNOMED: 26031053 (4) HTN (hypertension) ICD Codes: I10 - Essential (primary) hypertension SNOMED: 62366169 Assessment/Plan diuretics repeat echo check inr check cxr and bnp in MEHRAN MENJIVAR Nov 14, 2016 10:29
[2016-11-14 12:00] VITALS: BP 130/77
--- NOTE | 2016-11-14 13:40 | Consultation ---
Consult Note Consult Note Cardiology - coverage for Dr. Eden Full consult dictated #[id number] CLARICE JANE Nov 14, 2016 13:40
--- NOTE | 2016-11-14 14:21 | History & Physical ---
History and Physical History & Physicial Cover for Int Med-Dr Ann no. [id number]. ELIZA LIN Nov 14, 2016 14:21
[2016-11-14 16:00] VITALS: BP 124/69
--- NOTE | 2016-11-14 16:53 | Cardiology Report ---
APPROVED REPORT EXAM: Two-dimensional and M-mode echocardiogram with Doppler and color Doppler. INDICATION Left ventricular function M-Mode DIMENSIONS IVSd0.8 (0.7-1.1cm)Left Atrium (MM)5.2 (1.6-4.0cm) LVDd4.9 (3.5-5.6cm)Aortic Root2.2 (2.0-3.7cm) PWd1.0 (0.7-1.1cm)Aortic Cusp Exc.1.7 (1.5-2.0cm) LVDs3.0 (2.5-4.0cm) PWs1.3 cm Technically difficult study due to poor acoustic windows. Normal left ventricular chamber size, systolic function and wall motion. Restrictive LV physiology is suggestive of markedly imcreased intracardiac fillng pressure. Left ventricular ejection fraction estimated to be 60-65%. No evidence of left ventricular hypertrophy. Small anterior pericardial effusion. Moderate left atrial enlargement by 2D. Right cardiac chamber sizes are within normal limits. Focal aortic valve sclerosis with adequate cusp excursion Thickened mitral valve leaflets with normal excursion. Mitral annulus and aortic root calcification. Pulmonic valve not well visualized. Normal tricuspid valve structure. IVC is normal in size with physiologic collapse. A color flow and spectral Doppler study was performed and revealed: No aortic regurgitation. Severe mitral regurgitation. Left ventricular diastolic dysfunction not obtainable due to A-FIB. Moderate tricuspid regurgitation. Tricuspid systolic velocities suggests peak right ventricular systolic pressure of 37 mmHg Consistent with mild pulmonary hypertension. Pulmonic regurgitation present.
[2016-11-14 20:00] VITALS: BP 112/59
--- NOTE | 2016-11-14 22:08 | History and Physical Report ---
DATE OF ADMISSION: 11/13/[address] Matthews. CHIEF COMPLAINT: The patient is a 75-year-old female, who presents with a chief complaint of irregular heartbeat and shortness of breath. HISTORY OF PRESENT ILLNESS: The patient was admitted to [facility] in September 2016. Please see history and physical and discharge summary dictated at that time. The patient was apparently seen by her primary care physician yesterday on 11/13/2016. The patient was complaining of shortness of breath. Apparently, the patient's primary care physician planned an EKG. The patient was referred to [facility] emergency room for "irregular heart beat." The patient presented to [facility] emergency room. The patient was found to have atrial fibrillation. The patient was admitted for atrial fibrillation and shortness of breath. REVIEW OF SYSTEMS: Constitutional: The patient denies weight loss or weight gain. The patient denies fevers or chills. HEENT: The patient denies ear or throat pain. Cardiovascular: The patient denies chest pain. The patient complains of palpitations as above. Abdomen: The patient denies nausea, vomiting, diarrhea, or constipation. Genitourinary: The patient denies dysuria or increased frequency of urination. Neuromuscular: The patient denies seizures or generalized weakness. PAST MEDICAL HISTORY: Significant for hypertension. PAST SURGICAL HISTORY: The patient denies. CURRENT MEDICATIONS: 1. Atorvastatin 10 mg one tablet p.o. at bedtime. 2. Digoxin 0.25 mg one tablet p.o. daily. 3. Protonix 40 mg one tablet p.o. daily. 4. Coumadin 2.5 mg one tablet p.o. daily. ALLERGIES: No known drug allergies. SOCIAL HISTORY: The patient is a . The patient lives with her daughter. The patient denies tobacco or alcohol use. PHYSICAL EXAMINATION: VITAL SIGNS: Temperature 96.9 degrees, respirations 17, pulse 86, and blood pressure 116/57. GENERAL: The patient is well-nourished and well-developed, slightly obese female, in no apparent distress. HEENT: Eyes, pupils are equal and responsive to light and accommodation. Extraocular movements intact. NECK: Supple without lymphadenopathy. CHEST: Lungs are clear to auscultation bilaterally without wheezes or rales. CARDIOVASCULAR: Irregular rhythm and irregular rate. S1 and S2 are normal without murmurs, rubs, or gallops. ABDOMEN: Soft, nontender, and nondistended. Positive bowel sounds. No evidence of hepatosplenomegaly. Currently, no rebound and no guarding noted. EXTREMITIES: Negative for clubbing, cyanosis, or edema. RECTAL/GENITAL: Refused. NEUROLOGIC: Cranial nerves II through XII are grossly intact without focal deficits. Motor strength is 5/5 bilaterally. Deep tendon reflexes are 2+ bilaterally. LABORATORY STUDIES: WBC 6.4, hemoglobin 11.3, hematocrit 37.8, and platelets 311,000. Sodium 142, potassium 3.8, chloride 100, CO2 26, BUN 14, creatinine 0.8, and glucose 111. Digoxin level was therapeutic at 0.8. EKG was performed. This demonstrated atrial fibrillation with a ventricular rate of approximately 90 beats per minute. There are no acute ST or T-wave changes noted. ASSESSMENT: This is a 75-year-old female. 1. Shortness of breath. 2. Atrial fibrillation. 3. Hypertension. TREATMENT: 1. Shortness of breath/atrial fibrillation. Cardiology consultation will be obtained with Dr. Mary Anne Tomas. The patient is currently therapeutic on digoxin. The patient is currently on Coumadin. We will follow recommendations of Cardiology. The patient's ventricular rate is currently controlled. 2. Hypertension. The patient has been started on Lopressor 5 mg intravenously p.r.n. We will follow recommendations of Cardiology. Kana Coffman M.D. DR: BARBARA JOB#: [id number] CC:
[2016-11-15] VITALS: BP 132/87
--- NOTE | 2016-11-15 00:18 | Consultation ---
DATE OF CONSULTATION: 11/14/2016 CARDIOLOGY CONSULT Coverage for Dr. Rick Eden. REASON FOR CONSULT: Atrial fibrillation and shortness of breath. HISTORY OF PRESENT ILLNESS: History is obtained from the chart and from the patient, who speaks primarily Italian. The patient is a 75-year-old woman with a history of congestive heart failure, who presents with increasing shortness of breath over a few days prior to admission. Per the emergency room record, she had run out of medications including diuretics. In the emergency room, she was noted to have peripheral edema. She also had an irregular heart rate and was noted to be in atrial fibrillation. It is unclear if this is a new diagnosis or if atrial fibrillation is chronic. She was started on intravenous Lasix and admitted for further treatment. MEDICATIONS AT HOME: Atorvastatin 10 mg daily, digoxin 250 mcg daily, Levaquin 500 mg daily, Protonix 40 mg daily, Coumadin 2.5 mg daily, and Lasix (question dose). ALLERGIES: No known drug allergies. PAST MEDICAL HISTORY: As noted above. Also, history of hypertension and obesity. SOCIAL HISTORY: The patient is a nonsmoker. She has no history of alcohol or drug use. PHYSICAL EXAMINATION: VITAL SIGNS: Blood pressure is 116/57; pulse 86, irregularly irregular; respirations 21; and afebrile. GENERAL: Alert, obese female, in no acute distress. HEENT: Normocephalic and atraumatic. Pupils are equal, round, and reactive to light. Sclerae anicteric. NECK: Supple. There is no jugular venous distention. No carotid bruits. LUNGS: Clear to auscultation bilaterally. HEART: Irregularly irregular. S1 and S2 with no murmur or S3. ABDOMEN: Obese, soft, and nontender. No palpable mass. No bruits. EXTREMITIES: 1 to 2+ pedal edema bilaterally. NEUROLOGIC: No focal motor deficits. LABORATORY DATA: Hemoglobin 12, hematocrit 40, white blood count 5600, and platelets 321,000. Troponin less than 0.3. Sodium 142, potassium 3.8, chloride 100, bicarbonate 26, BUN 14, creatinine 0.8, and glucose 111. LDL 72 and total cholesterol 151. Natriuretic peptide 1717. IMAGING STUDIES: Chest x-ray shows cardiomegaly, no infiltrate or edema. EKG shows atrial fibrillation with a ventricular rate of 96 beats per minute, low voltage QRS, axis +60 degrees, nonspecific T-wave changes (no old EKG available for comparison). Echo (preliminary report shows an EF of 60% to 65% with mild left ventricular hypertrophy, moderate mitral regurgitation, and pulmonary hypertension with PA pressure 65 mmHg. ASSESSMENT AND RECOMMENDATIONS: The patient is a 75-year-old woman with a history of hypertension, obesity, congestive heart failure, and atrial fibrillation, possibly permanent, who was admitted with increasing dyspnea and leg swelling. She is noted to have an elevated BNP. Findings are consistent with congestive heart failure. Given the echo results, it appears that she has acute diastolic heart failure. The recommendations are for intravenous diuretics and would also continue digoxin for rate control and atrial fibrillation. If needed, low-dose beta-maine could be added. I would also favor anticoagulation. Her INR is above therapeutic range at 3.5, so I would hold warfarin for now and recheck labs tomorrow. She does not appear with evidence for an acute coronary syndrome. Troponin level is negative. An EKG does not show any acute ischemic change. Mary Anne Tomas M.D. DR: WILLIAM JOB#: [id number] CC:
[2016-11-15 04:00] VITALS: BP 120/66
[2016-11-15 07:34] LABS: BASOPHILS % (AUTO) 1.6 % (0.0-2.0); LYMPHOCYTES % (AUTO) 24.8 % (20.0-45.0); MEAN CORPUSCULAR HEMOGLOBIN 22.8 PG (27.0-31.0); MEAN CORPUSCULAR HGB CONC 31.1 G/DL (32.0-36.0); MEAN CORPUSCULAR VOLUME 73 FL (80-99); MEAN PLATELET VOLUME 6.5 FL (6.5-10.1); MONOCYTES % (AUTO) 13.4 % (1.0-10.0); NEUTROPHILS % (AUTO) 55.3 % (45.0-75.0); PLATELET COUNT 285 K/UL (150-450); RED BLOOD COUNT 4.83 M/UL (4.20-5.40); WHITE BLOOD COUNT 5.3 K/UL (4.8-10.8)
[2016-11-15 07:51] LABS: INR 3.1 (0.9-1.1); PROTHROMBIN TIME 32.8 SEC (9.30-11.50)
[2016-11-15 08:00] VITALS: BP 131/88
[2016-11-15 08:11] LABS: ALANINE AMINOTRANSFERASE 13 U/L (3-33); ALBUMIN/GLOBULIN RATIO 1.2 (1.0-2.7); ANION GAP 13 (5-15); ASPARTATE AMINO TRANSFERASE 19 U/L (5-40); CALCIUM 8.8 mg/dL (8.6-10.2); CARBON DIOXIDE 28 mEQ/L (20-30); CHLORIDE 102 mEQ/L (98-107); CREATININE 0.7 mg/dL (0.5-0.9); HEMOLYSIS 5; POTASSIUM 3.6 mEQ/L (3.4-4.9); SODIUM 143 mEQ/L (135-145); TOTAL PROTEIN 6.5 g/dL (6.6-8.7)
[2016-11-15 08:53] LABS: TROPONIN I < 0.30 ng/mL (<=0.30)
--- NOTE | 2016-11-15 11:13 | Diagnostic Imaging Report ---
Clinical history: Shortness of breath Technique: Portable AP chest radiograph was obtained. Comparison: 10/10/16. Findings: Lung volumes are low. The heart is mildly enlarged with mild interstitial opacities likely reflecting interstitial edema. Trace effusions may be present. There is otherwise no significant interval change in the interval, allowing for differences in technique and positioning. Impression: Cardiomegaly with suspected mild interstitial edema. Low lung volumes with probable basilar atelectasis.
[2016-11-15 12:00] VITALS: BP 121/78
--- NOTE | 2016-11-15 12:20 | Internal Med Progress Note ---
Subjective Date of Service: Nov 15, 2016 Physician Name Kana Coffman Attending Physician Elliot Ann MD Current Medications Medications (Trade) Dose Ordered Sig/Abby Route PRN Reason Start Time Stop Time Status Last Admin Dose Admin Acetaminophen (Tylenol) 650 mg Q4H PRN ORAL FEVER 11/13/16 22:15 12/13/16 22:14 Albuterol/ Ipratropium (DuoNeb 0.5-3(2.5)mg/3ml) 3 ml Q4H PRN HHN Shortness of Breath 11/13/16 22:15 11/18/16 22:14 Atorvastatin Calcium (Lipitor) 10 mg BEDTIME ORAL 11/14/16 21:00 12/14/16 20:59 11/14/16 21:11 Digoxin (Lanoxin) 0.25 mg DAILY ORAL 11/14/16 09:00 12/14/16 08:59 11/15/16 08:30 Metoprolol Tartrate (Lopressor) 5 mg Q1H PRN IVP heart rate more than 140 11/13/16 22:15 12/13/16 22:14 Morphine Sulfate (Morphine Sulfate) 2 mg Q4H PRN IVP severe Pain (Pain Scale 7-10) 11/13/16 22:15 11/20/16 22:14 Nitroglycerin (Ntg) 0.4 mg Q5M PRN SL Prn Chest Pain 11/13/16 22:15 12/13/16 22:14 Ondansetron HCl (Zofran) 4 mg Q6H PRN IVP Nausea & Vomiting 11/13/16 22:15 12/13/16 22:14 Pantoprazole (Protonix) 40 mg DAILY ORAL 11/14/16 09:00 12/14/16 08:59 11/15/16 08:30 Polyethylene Glycol (Miralax) 17 gm DAILYPRN PRN ORAL Constipation 11/13/16 22:15 12/13/16 22:14 Temazepam (Restoril) 15 mg HSPRN PRN ORAL Insomnia 11/13/16 22:15 11/20/16 22:14 Allergies: Coded Allergies: No Known Allergies (Unverified , 10/08/16) ROS Limited/Unobtainable: No Constitutional: Reports: no symptoms HEENT: Reports: no symptoms Cardiovascular: Reports: no symptoms Respiratory: Reports: shortness of breath Gastrointestinal/Abdominal: Reports: no symptoms Genitourinary: Reports: no symptoms Neurologic/Psychiatric: Reports: no symptoms Subjective 75 YO F admitted with shortness of breath. Now atrial fibrillation and congestive heart failure. Cover for Int Med-Dr Ann. Objective Last Vital Signs Date Time Temp Pulse Resp B/P Pulse Ox O2 Delivery O2 Flow Rate FiO2 11/15/16 08:30 77 11/15/16 08:00 96.9 18 131/88 97 Room Air 11/14/16 20:00 2.0 11/14/16 09:59 21 General Appearance: no apparent distress, alert, obese EENT: PERRL/EOMI, normal ENT inspection, TMs normal Neck: non-tender, normal alignment, supple Cardiovascular: normal peripheral pulses, no gallop/murmur, no JVD, irregularly irregular Respiratory/Chest: chest wall non-tender, lungs clear, normal breath sounds, no respiratory distress, no accessory muscle use Abdomen: normal bowel sounds, non tender, soft, no organomegaly, no mass Extremities: normal range of motion Neurologic: towel folder II-XII grossly normal, no motor/sensory deficits Skin: normal pigmentation, warm/dry Laboratory Tests Test 11/15/16 06:30 White Blood Count 5.3 K/UL (4.8-10.8) Red Blood Count 4.83 M/UL (4.20-5.40) Hemoglobin 11.0 G/DL (12.0-16.0) L Hematocrit 35.4 % (37.0-47.0) L Mean Corpuscular Volume 73 FL (80-99) L Mean Corpuscular Hemoglobin 22.8 PG (27.0-31.0) L Mean Corpuscular Hemoglobin Concent 31.1 G/DL (32.0-36.0) L Red Cell Distribution Width 18.0 % (11.6-14.8) H Platelet Count 285 K/UL (150-450) Mean Platelet Volume 6.5 FL (6.5-10.1) Neutrophils (%) (Auto) 55.3 % (45.0-75.0) Lymphocytes (%) (Auto) 24.8 % (20.0-45.0) Monocytes (%) (Auto) 13.4 % (1.0-10.0) H Eosinophils (%) (Auto) 5.0 % (0.0-3.0) H Basophils (%) (Auto) 1.6 % (0.0-2.0) Prothrombin Time 32.8 SEC (9.30-11.50) H Prothromb Time International Ratio 3.1 (0.9-1.1) H Sodium Level 143 mEQ/L (135-145) Potassium Level 3.6 mEQ/L (3.4-4.9) Chloride Level 102 mEQ/L (98-107) Carbon Dioxide Level 28 mEQ/L (20-30) Anion Gap 13 (5-15) Blood Urea Nitrogen 14 mg/dL (7-23) Creatinine 0.7 mg/dL (0.5-0.9) Estimat Glomerular Filtration Rate mL/min (>60) Glucose Level 119 mg/dL (74-106) H Calcium Level 8.8 mg/dL (8.6-10.2) Total Bilirubin 0.6 mg/dL (0.0-1.2) Aspartate Amino Transf (AST/SGOT) 19 U/L (5-40) Alanine Aminotransferase (ALT/SGPT) 13 U/L (3-33) Alkaline Phosphatase 67 U/L (35-104) Troponin I < 0.30 ng/mL (<=0.30) Pro-B-Type Natriuretic Peptide 1026 pg/mL (0-450) H Total Protein 6.5 g/dL (6.6-8.7) L Albumin 3.6 g/dL (3.5-5.2) Globulin 2.9 g/dL Albumin/Globulin Ratio 1.2 (1.0-2.7) Digoxin Level 0.8 ng/mL (0.5-2.0) Intake and Output 11/14/16 11/15/16 19:00 07:00 Intake Total 480 ml 260 ml Balance 480 ml 260 ml Intake Oral 480 ml 260 ml # Voids 2 Assessment/Plan Problem List: (1) CHF (congestive heart failure) Assessment & Plan: LVEF=60-65%. See cardiology note. (2) HTN (hypertension) Assessment & Plan: Cont metoprolol (3) Shortness of breath (4) Atrial fibrillation Assessment & Plan: INR=3.1. Hold coumadin until INR<3. Cont digoxin per cardiology. Status: KANA Escobar Nov 15, 2016 12:20
[2016-11-15] MEDS: Levofloxacin 500mg tab ORAL SCH (14:13)
--- NOTE | 2016-11-15 14:14 | Cardiology Progress Note ---
Assessment/Plan Status: stable, progressing Status Narrative Pt adm w/ rapid AF - minimal symptoms. Ventricular rates remain elevated. Ruling out for HI w/ negative troponins Assessment/Plan Continue digoxin. Start metoprolol 25 mg bid for rate control. restart warfarin - INR just above therapeutic range. f/u labs in am Subjective ROS Limited/Unobtainable: No Subjective No c/o chest pain , dyspnea or palpitations Objective Last 24 Hour Vital Signs Date Time Temp Pulse Resp B/P Pulse Ox O2 Delivery O2 Flow Rate FiO2 11/15/16 12:00 97.0 92 18 121/78 98 Room Air 11/15/16 12:00 78 11/15/16 08:30 77 11/15/16 08:00 96.9 77 18 131/88 97 Room Air 11/15/16 08:00 77 11/15/16 07:40 86 16 Room Air 11/15/16 04:00 98.0 76 18 120/66 99 11/15/16 03:42 75 11/15/16 00:00 97.0 62 20 132/87 98 Room Air 11/14/16 23:48 97 11/14/16 20:00 97.9 70 20 112/59 96 Nasal Cannula 2.0 11/14/16 19:56 88 16 Room Air 11/14/16 19:48 82 11/14/16 16:30 79 11/14/16 16:00 97.2 81 19 124/69 97 Nasal Cannula 2.0 General Appearance: WD/WN, no apparent distress, obese EENT: PERRL/EOMI Neck: no JVD Rhythm: Afib Cardiovascular: no gallop/murmur, tachycardia, irregularly irregular Respiratory/Chest: lungs clear Abdomen: non tender, soft Extremities: trace edema Intake and Output 11/14/16 11/15/16 19:00 07:00 Intake Total 480 ml 260 ml Balance 480 ml 260 ml Intake Oral 480 ml 260 ml # Voids 2 Laboratory Tests Test 11/15/16 06:30 White Blood Count 5.3 K/UL (4.8-10.8) Red Blood Count 4.83 M/UL (4.20-5.40) Hemoglobin 11.0 G/DL (12.0-16.0) L Hematocrit 35.4 % (37.0-47.0) L Mean Corpuscular Volume 73 FL (80-99) L Mean Corpuscular Hemoglobin 22.8 PG (27.0-31.0) L Mean Corpuscular Hemoglobin Concent 31.1 G/DL (32.0-36.0) L Red Cell Distribution Width 18.0 % (11.6-14.8) H Platelet Count 285 K/UL (150-450) Mean Platelet Volume 6.5 FL (6.5-10.1) Neutrophils (%) (Auto) 55.3 % (45.0-75.0) Lymphocytes (%) (Auto) 24.8 % (20.0-45.0) Monocytes (%) (Auto) 13.4 % (1.0-10.0) H Eosinophils (%) (Auto) 5.0 % (0.0-3.0) H Basophils (%) (Auto) 1.6 % (0.0-2.0) Prothrombin Time 32.8 SEC (9.30-11.50) H Prothromb Time International Ratio 3.1 (0.9-1.1) H Sodium Level 143 mEQ/L (135-145) Potassium Level 3.6 mEQ/L (3.4-4.9) Chloride Level 102 mEQ/L (98-107) Carbon Dioxide Level 28 mEQ/L (20-30) Anion Gap 13 (5-15) Blood Urea Nitrogen 14 mg/dL (7-23) Creatinine 0.7 mg/dL (0.5-0.9) Estimat Glomerular Filtration Rate mL/min (>60) Glucose Level 119 mg/dL (74-106) H Calcium Level 8.8 mg/dL (8.6-10.2) Total Bilirubin 0.6 mg/dL (0.0-1.2) Aspartate Amino Transf (AST/SGOT) 19 U/L (5-40) Alanine Aminotransferase (ALT/SGPT) 13 U/L (3-33) Alkaline Phosphatase 67 U/L (35-104) Troponin I < 0.30 ng/mL (<=0.30) Pro-B-Type Natriuretic Peptide 1026 pg/mL (0-450) H Total Protein 6.5 g/dL (6.6-8.7) L Albumin 3.6 g/dL (3.5-5.2) Globulin 2.9 g/dL Albumin/Globulin Ratio 1.2 (1.0-2.7) Digoxin Level 0.8 ng/mL (0.5-2.0) CLARICE JANE Nov 15, 2016 14:14
[2016-11-15 16:00] VITALS: BP 115/65
--- NOTE | 2016-11-15 18:29 | Cardiology Report ---
APPROVED REPORT EKG Measurement Heart [id number] QT0T0 QTc0 No QRS complexes found, no ECG analysis possible
[2016-11-15 20:00] VITALS: BP 153/80
--- NOTE | 2016-11-15 22:26 | Pulmonology Progress Note ---
Assessment/Plan Problems: (1) Shortness of breath (2) Atrial fibrillation (3) Congestive cardiac failure (4) HTN (hypertension) Assessment/Plan improving heart rate controlled anticoagulation echocardiogram Subjective ROS Limited/Unobtainable: No Constitutional: Reports: no symptoms HEENT: Repors: no symptoms Respiratory: Reports: no symptoms Gastrointestinal/Abdominal: Reports: no symptoms Genitourinary: Reports: no symptoms Neurologic: Reports: no symptoms Allergies: Coded Allergies: No Known Allergies (Unverified , 10/08/16) Objective Last 24 Hour Vital Signs Date Time Temp Pulse Resp B/P Pulse Ox O2 Delivery O2 Flow Rate FiO2 11/15/16 21:11 78 16 Room Air 11/15/16 20:00 97.6 78 20 153/80 96 Room Air 11/15/16 16:00 97.4 87 21 115/65 97 Room Air 11/15/16 12:00 97.0 92 18 121/78 98 Room Air 11/15/16 12:00 78 11/15/16 08:30 77 11/15/16 08:00 96.9 77 18 131/88 97 Room Air 11/15/16 08:00 77 11/15/16 07:40 86 16 Room Air 11/15/16 04:00 98.0 76 18 120/66 99 11/15/16 03:42 75 11/15/16 00:00 97.0 62 20 132/87 98 Room Air 11/14/16 23:48 97 Intake and Output 11/14/16 11/15/16 19:00 07:00 Intake Total 480 ml 260 ml Balance 480 ml 260 ml Intake Oral 480 ml 260 ml # Voids 2 General Appearance: WD/WN HEENT: normocephalic, atraumatic Respiratory/Chest: chest wall non-tender, lungs clear Breasts: no masses Cardiovascular: normal peripheral pulses, normal rate Abdomen: normal bowel sounds, soft, non tender Genitourinary: normal external genitalia Laboratory Tests 11/15/16 06:30: White Blood Count 5.3, Red Blood Count 4.83, Hemoglobin 11.0L, Hematocrit 35.4L , Mean Corpuscular Volume 73L, Mean Corpuscular Hemoglobin 22.8L, Mean Corpuscular Hemoglobin Concent 31.1L, Red Cell Distribution Width 18.0H, Platelet Count 285, Mean Platelet Volume 6.5, Neutrophils (%) (Auto) 55.3, Lymphocytes (%) (Auto) 24.8, Monocytes (%) (Auto) 13.4H, Eosinophils (%) (Auto) 5.0H, Basophils (%) (Auto) 1.6, Prothrombin Time 32.8H, Prothromb Time International Ratio 3.1H, Sodium Level 143, Potassium Level 3.6, Chloride Level 102, Carbon Dioxide Level 28, Anion Gap 13, Blood Urea Nitrogen 14, Creatinine 0.7, Estimat Glomerular Filtration Rate , Glucose Level 119H, Calcium Level 8.8 , Total Bilirubin 0.6, Aspartate Amino Transf (AST/SGOT) 19, Alanine Aminotransferase (ALT/SGPT) 13, Alkaline Phosphatase 67, Troponin I < 0.30, Pro- B-Type Natriuretic Peptide 1026H, Total Protein 6.5L, Albumin 3.6, Globulin 2.9 , Albumin/Globulin Ratio 1.2, Digoxin Level 0.8 Current Medications Medications (Trade) Dose Ordered Sig/Abby Route PRN Reason Start Time Stop Time Status Last Admin Dose Admin Acetaminophen (Tylenol) 650 mg Q4H PRN ORAL FEVER 11/13/16 22:15 12/13/16 22:14 Albuterol/ Ipratropium (DuoNeb 0.5-3(2.5)mg/3ml) 3 ml Q4H PRN HHN Shortness of Breath 11/13/16 22:15 11/18/16 22:14 Atorvastatin Calcium (Lipitor) 10 mg BEDTIME ORAL 11/14/16 21:00 12/14/16 20:59 11/14/16 21:11 Digoxin (Lanoxin) 0.25 mg DAILY ORAL 11/14/16 09:00 12/14/16 08:59 11/15/16 08:30 Levofloxacin (Levaquin) 500 mg Q24H ORAL 11/15/16 14:00 11/22/16 13:59 11/15/16 14:13 Metoprolol Tartrate (Lopressor) 25 mg Q12HR ORAL 11/15/16 21:00 12/15/16 20:59 Morphine Sulfate (Morphine Sulfate) 2 mg Q4H PRN IVP severe Pain (Pain Scale 7-10) 11/13/16 22:15 11/20/16 22:14 Nitroglycerin (Ntg) 0.4 mg Q5M PRN SL Prn Chest Pain 11/13/16 22:15 12/13/16 22:14 Ondansetron HCl (Zofran) 4 mg Q6H PRN IVP Nausea & Vomiting 11/13/16 22:15 12/13/16 22:14 Pantoprazole (Protonix) 40 mg DAILY ORAL 11/14/16 09:00 12/14/16 08:59 11/15/16 08:30 Polyethylene Glycol (Miralax) 17 gm DAILYPRN PRN ORAL Constipation 11/13/16 22:15 12/13/16 22:14 Temazepam (Restoril) 15 mg HSPRN PRN ORAL Insomnia 11/13/16 22:15 11/20/16 22:14 Warfarin Sodium (Coumadin per pharmacy) 1 ea DAILY PRN MISC Per rx protocol 11/15/16 14:15 12/15/16 14:14 MEHRAN MENJIVAR Nov 15, 2016 22:26
[2016-11-15] MEDS: Metoprolol 25mg tab ORAL SCH (22:29)
[2016-11-16] VITALS: BP 136/82
[2016-11-16 04:30] VITALS: BP 109/83
[2016-11-16 07:11] LABS: BASOPHILS % (AUTO) 1.2 % (0.0-2.0); EOSINOPHILS % (AUTO) 5.5 % (0.0-3.0); LYMPHOCYTES % (AUTO) 25.7 % (20.0-45.0); MEAN CORPUSCULAR HEMOGLOBIN 22.6 PG (27.0-31.0); MEAN CORPUSCULAR HGB CONC 30.7 G/DL (32.0-36.0); MEAN CORPUSCULAR VOLUME 74 FL (80-99); MEAN PLATELET VOLUME 6.6 FL (6.5-10.1); MONOCYTES % (AUTO) 14.4 % (1.0-10.0); NEUTROPHILS % (AUTO) 53.1 % (45.0-75.0); PLATELET COUNT 282 K/UL (150-450); RED BLOOD COUNT 4.97 M/UL (4.20-5.40); RED CELL DISTRIBUTION WIDTH 18.1 % (11.6-14.8); WHITE BLOOD COUNT 5.4 K/UL (4.8-10.8)
[2016-11-16 07:21] LABS: INR 2.4 (0.9-1.1); PROTHROMBIN TIME 24.8 SEC (9.30-11.50)
[2016-11-16 07:54] LABS: ANION GAP 14 (5-15); CALCIUM 8.6 mg/dL (8.6-10.2); CARBON DIOXIDE 26 mEQ/L (20-30); CHLORIDE 102 mEQ/L (98-107); CREATININE 0.6 mg/dL (0.5-0.9); HEMOLYSIS 4; POTASSIUM 3.4 mEQ/L (3.4-4.9); SODIUM 142 mEQ/L (135-145)
[2016-11-16 08:00] VITALS: BP 106/59
[2016-11-16] MEDS: Metoprolol 25mg tab ORAL SCH ×2 (09:11→21:53)
[2016-11-16 12:00] VITALS: BP 115/73
--- NOTE | 2016-11-16 12:26 | Internal Med Progress Note ---
Subjective Date of Service: Nov 16, 2016 Physician Name Kana Lin Attending Physician Elliot Ann MD Current Medications Medications (Trade) Dose Ordered Sig/Abby Route PRN Reason Start Time Stop Time Status Last Admin Dose Admin Acetaminophen (Tylenol) 650 mg Q4H PRN ORAL FEVER 11/13/16 22:15 12/13/16 22:14 Albuterol/ Ipratropium (DuoNeb 0.5-3(2.5)mg/3ml) 3 ml Q4H PRN HHN Shortness of Breath 11/13/16 22:15 11/18/16 22:14 Atorvastatin Calcium (Lipitor) 10 mg BEDTIME ORAL 11/14/16 21:00 12/14/16 20:59 11/15/16 22:28 Digoxin (Lanoxin) 0.25 mg DAILY ORAL 11/14/16 09:00 12/14/16 08:59 11/16/16 09:10 Levofloxacin (Levaquin) 500 mg Q24H ORAL 11/15/16 14:00 11/22/16 13:59 11/15/16 14:13 Metoprolol Tartrate (Lopressor) 25 mg Q12HR ORAL 11/15/16 21:00 12/15/16 20:59 11/16/16 09:11 Morphine Sulfate (Morphine Sulfate) 2 mg Q4H PRN IVP severe Pain (Pain Scale 7-10) 11/13/16 22:15 11/20/16 22:14 Nitroglycerin (Ntg) 0.4 mg Q5M PRN SL Prn Chest Pain 11/13/16 22:15 12/13/16 22:14 Ondansetron HCl (Zofran) 4 mg Q6H PRN IVP Nausea & Vomiting 11/13/16 22:15 12/13/16 22:14 Pantoprazole (Protonix) 40 mg DAILY ORAL 11/14/16 09:00 12/14/16 08:59 11/16/16 09:10 Polyethylene Glycol (Miralax) 17 gm DAILYPRN PRN ORAL Constipation 11/13/16 22:15 12/13/16 22:14 Temazepam (Restoril) 15 mg HSPRN PRN ORAL Insomnia 11/13/16 22:15 11/20/16 22:14 Warfarin Sodium (Coumadin per pharmacy) 1 ea DAILY PRN MISC Per rx protocol 11/15/16 14:15 12/15/16 14:14 Warfarin Sodium (Coumadin) 2.5 mg COUMADIN ONCE ORAL 11/16/16 17:00 11/16/16 17:01 Allergies: Coded Allergies: No Known Allergies (Unverified , 10/08/16) ROS Limited/Unobtainable: No Constitutional: Reports: no symptoms HEENT: Reports: no symptoms Cardiovascular: Reports: no symptoms Respiratory: Reports: shortness of breath Gastrointestinal/Abdominal: Reports: no symptoms Genitourinary: Reports: no symptoms Neurologic/Psychiatric: Reports: no symptoms Subjective 75 YO F admitted with shortness of breath. Now atrial fibrillation and congestive heart failure. Cover for Int Med-Dr Ann. Objective Last Vital Signs Date Time Temp Pulse Resp B/P Pulse Ox O2 Delivery O2 Flow Rate FiO2 11/16/16 09:11 96 130/76 11/16/16 08:09 16 Room Air 11/16/16 08:00 96.8 97 11/14/16 20:00 2.0 11/14/16 09:59 21 Laboratory Tests Test 11/16/16 04:50 White Blood Count 5.4 K/UL (4.8-10.8) Red Blood Count 4.97 M/UL (4.20-5.40) Hemoglobin 11.2 G/DL (12.0-16.0) L Hematocrit 36.6 % (37.0-47.0) L Mean Corpuscular Volume 74 FL (80-99) L Mean Corpuscular Hemoglobin 22.6 PG (27.0-31.0) L Mean Corpuscular Hemoglobin Concent 30.7 G/DL (32.0-36.0) L Red Cell Distribution Width 18.1 % (11.6-14.8) H Platelet Count 282 K/UL (150-450) Mean Platelet Volume 6.6 FL (6.5-10.1) Neutrophils (%) (Auto) 53.1 % (45.0-75.0) Lymphocytes (%) (Auto) 25.7 % (20.0-45.0) Monocytes (%) (Auto) 14.4 % (1.0-10.0) H Eosinophils (%) (Auto) 5.5 % (0.0-3.0) H Basophils (%) (Auto) 1.2 % (0.0-2.0) Prothrombin Time 24.8 SEC (9.30-11.50) H Prothromb Time International Ratio 2.4 (0.9-1.1) H Sodium Level 142 mEQ/L (135-145) Potassium Level 3.4 mEQ/L (3.4-4.9) Chloride Level 102 mEQ/L (98-107) Carbon Dioxide Level 26 mEQ/L (20-30) Anion Gap 14 (5-15) Blood Urea Nitrogen 10 mg/dL (7-23) Creatinine 0.6 mg/dL (0.5-0.9) Estimat Glomerular Filtration Rate mL/min (>60) Glucose Level 122 mg/dL (74-106) H Calcium Level 8.6 mg/dL (8.6-10.2) Pro-B-Type Natriuretic Peptide 1302 pg/mL (0-450) H Microbiology Date/Time Source Procedure Growth Status 11/14/16 03:30 Nasal Nares Right MRSA Culture - Final NO METHICILLIN RESISTANT STAPH AUREUS... Complete 11/14/16 03:30 Rectum VRE Culture - Final NO VANCOMYCIN RESISTANT ENTEROCOCCUS ... Complete Intake and Output 11/15/16 11/16/16 19:00 07:00 Intake Total 680 ml 200 ml Balance 680 ml 200 ml Intake Oral 680 ml 200 ml # Voids 4 3 Objective General Appearance: no apparent distress, alert, obese EENT: PERRL/EOMI, normal ENT inspection, TMs normal Neck: non-tender, normal alignment, supple Cardiovascular: normal peripheral pulses, no gallop/murmur, no JVD, irregularly irregular Respiratory/Chest: chest wall non-tender, lungs clear, normal breath sounds, no respiratory distress, no accessory muscle use Abdomen: normal bowel sounds, non tender, soft, no organomegaly, no mass Extremities: normal range of motion 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 See cardiology note. (2) HTN (hypertension) Assessment & Plan: Cont metoprolol (3) Shortness of breath (4) Atrial fibrillation Assessment & Plan: Restart coumadin INR<3. Cont digoxin per cardiology. Status: progressing LIN,KANA Nov 16, 2016 12:26
[2016-11-16] MEDS: Levofloxacin 500mg tab ORAL SCH (13:57)
[2016-11-16] MEDS ORDERED: HydrALAZINE 50mg tab ORAL SCH (14:45)
[2016-11-16 16:00] VITALS: BP 101/45
[2016-11-16] MEDS ORDERED: Warfarin Sodium 2.5mg ORAL ONE (17:00)
[2016-11-16 20:00] VITALS: BP 125/73
--- NOTE | 2016-11-16 22:59 | Pulmonology Progress Note ---
Assessment/Plan Problems: (1) Shortness of breath (2) Atrial fibrillation (3) Congestive cardiac failure (4) HTN (hypertension) Assessment/Plan improving heart rate better, anticoagulation check INR, Subjective ROS Limited/Unobtainable: No Interval Events: no new complains Allergies: Coded Allergies: No Known Allergies (Unverified , 10/08/16) Objective Last 24 Hour Vital Signs Date Time Temp Pulse Resp B/P Pulse Ox O2 Delivery O2 Flow Rate FiO2 11/16/16 21:53 94 145/85 11/16/16 21:00 72 11/16/16 20:00 96.8 80 18 125/73 95 Room Air 11/16/16 19:48 70 16 Room Air 11/16/16 16:00 96.1 71 18 101/45 95 Room Air 11/16/16 16:00 57 11/16/16 12:00 67 11/16/16 12:00 97.2 63 17 115/73 95 Room Air 68 11/16/16 09:11 96 130/76 11/16/16 09:10 96 11/16/16 08:09 74 16 Room Air 11/16/16 08:00 88 11/16/16 08:00 96.8 92 17 106/59 97 Room Air 96 11/16/16 04:30 97.7 88 20 109/83 96 Room Air 11/16/16 04:00 80 11/16/16 00:00 97.0 74 20 136/82 96 Room Air 11/16/16 00:00 88 Intake and Output 11/15/16 11/16/16 19:00 07:00 Intake Total 680 ml 200 ml Balance 680 ml 200 ml Intake Oral 680 ml 200 ml # Voids 4 3 General Appearance: WD/WN HEENT: normocephalic, anicteric Respiratory/Chest: chest wall non-tender, normal breath sounds Cardiovascular: normal peripheral pulses, normal rate Abdomen: normal bowel sounds, no organomegaly Extremities: no clubbing Skin: no rash Microbiology Date/Time Source Procedure Growth Status 11/14/16 03:30 Nasal Nares Right MRSA Culture - Final NO METHICILLIN RESISTANT STAPH AUREUS... Complete 11/14/16 03:30 Rectum VRE Culture - Final NO VANCOMYCIN RESISTANT ENTEROCOCCUS ... Complete Laboratory Tests 11/16/16 04:50: White Blood Count 5.4, Red Blood Count 4.97, Hemoglobin 11.2L, Hematocrit 36.6L , Mean Corpuscular Volume 74L, Mean Corpuscular Hemoglobin 22.6L, Mean Corpuscular Hemoglobin Concent 30.7L, Red Cell Distribution Width 18.1H, Platelet Count 282, Mean Platelet Volume 6.6, Neutrophils (%) (Auto) 53.1, Lymphocytes (%) (Auto) 25.7, Monocytes (%) (Auto) 14.4H, Eosinophils (%) (Auto) 5.5H, Basophils (%) (Auto) 1.2, Prothrombin Time 24.8H, Prothromb Time International Ratio 2.4H, Sodium Level 142, Potassium Level 3.4, Chloride Level 102, Carbon Dioxide Level 26, Anion Gap 14, Blood Urea Nitrogen 10, Creatinine 0.6, Estimat Glomerular Filtration Rate , Glucose Level 122H, Calcium Level 8.6 , Pro-B-Type Natriuretic Peptide 1302H Current Medications Medications (Trade) Dose Ordered Sig/Abby Route PRN Reason Start Time Stop Time Status Last Admin Dose Admin Acetaminophen (Tylenol) 650 mg Q4H PRN ORAL FEVER 11/13/16 22:15 12/13/16 22:14 Albuterol/ Ipratropium (DuoNeb 0.5-3(2.5)mg/3ml) 3 ml Q4H PRN HHN Shortness of Breath 11/13/16 22:15 11/18/16 22:14 Atorvastatin Calcium (Lipitor) 10 mg BEDTIME ORAL 11/14/16 21:00 12/14/16 20:59 11/16/16 21:53 Digoxin (Lanoxin) 0.25 mg DAILY ORAL 11/14/16 09:00 12/14/16 08:59 11/16/16 09:10 Levofloxacin (Levaquin) 500 mg Q24H ORAL 11/15/16 14:00 11/22/16 13:59 11/16/16 13:57 Metoprolol Tartrate (Lopressor) 25 mg Q12HR ORAL 11/15/16 21:00 12/15/16 20:59 11/16/16 21:53 Morphine Sulfate (Morphine Sulfate) 2 mg Q4H PRN IVP severe Pain (Pain Scale 7-10) 11/13/16 22:15 11/20/16 22:14 Nitroglycerin (Ntg) 0.4 mg Q5M PRN SL Prn Chest Pain 11/13/16 22:15 12/13/16 22:14 Ondansetron HCl (Zofran) 4 mg Q6H PRN IVP Nausea & Vomiting 11/13/16 22:15 12/13/16 22:14 Pantoprazole (Protonix) 40 mg DAILY ORAL 11/14/16 09:00 12/14/16 08:59 11/16/16 09:10 Polyethylene Glycol (Miralax) 17 gm DAILYPRN PRN ORAL Constipation 11/13/16 22:15 12/13/16 22:14 Temazepam (Restoril) 15 mg HSPRN PRN ORAL Insomnia 11/13/16 22:15 11/20/16 22:14 Warfarin Sodium (Coumadin per pharmacy) 1 ea DAILY PRN MISC Per rx protocol 11/15/16 14:15 12/15/16 14:14 MEHRAN MENJIVAR Nov 16, 2016 22:59
[2016-11-17 00:29] VITALS: BP 120/72
[2016-11-17 04:00] VITALS: BP 119/54
[2016-11-17 08:09] VITALS: BP 119/67
[2016-11-17 09:25] LABS: BASOPHILS % (AUTO) 1.2 % (0.0-2.0); EOSINOPHILS % (AUTO) 3.9 % (0.0-3.0); LYMPHOCYTES % (AUTO) 20.8 % (20.0-45.0); MEAN CORPUSCULAR HEMOGLOBIN 22.3 PG (27.0-31.0); MEAN CORPUSCULAR HGB CONC 30.1 G/DL (32.0-36.0); MEAN CORPUSCULAR VOLUME 74 FL (80-99); MEAN PLATELET VOLUME 6.4 FL (6.5-10.1); MONOCYTES % (AUTO) 11.4 % (1.0-10.0); NEUTROPHILS % (AUTO) 62.7 % (45.0-75.0); PLATELET COUNT 282 K/UL (150-450); RED BLOOD COUNT 4.93 M/UL (4.20-5.40); RED CELL DISTRIBUTION WIDTH 18.1 % (11.6-14.8); WHITE BLOOD COUNT 4.6 K/UL (4.8-10.8)
[2016-11-17] MEDS: Metoprolol 25mg tab ORAL SCH (09:27)
[2016-11-17 09:34] LABS: ANION GAP 15 (5-15); CALCIUM 8.9 mg/dL (8.6-10.2); CARBON DIOXIDE 27 mEQ/L (20-30); CHLORIDE 99 mEQ/L (98-107); CREATININE 0.7 mg/dL (0.5-0.9); HEMOLYSIS 4; POTASSIUM 3.7 mEQ/L (3.4-4.9); SODIUM 141 mEQ/L (135-145)
[2016-11-17 09:45] LABS: INR 1.9 (0.9-1.1); PROTHROMBIN TIME 20.2 SEC (9.30-11.50)
[2016-11-17 11:39] VITALS: BP 125/66
[2016-11-17] MEDS: Levofloxacin 500mg tab ORAL SCH (14:23)
--- NOTE | 2016-11-17 15:08 | Discharge Summary ---
Discharge Summary Hospital Course Date of Admission Nov 13, 2016 at 19:21 Date of Discharge Admitting Diagnosis shortness of breath, afib HPI Rin Gibson is a 75 year old female who was admitted on Nov 13, 2016 at 19: 21 for Shortness Of Breath,Atrial Fibrilation Hospital Course The patient was seen and examined at bedside and all new and available data was reviewed in the patients chart. Last 24 Hour Vital Signs Date Time Temp Pulse Resp B/P Pulse Ox O2 Delivery O2 Flow Rate FiO2 11/17/16 12:00 66 11/17/16 11:39 97.0 83 18 125/66 97 Nasal Cannula 2.0 11/17/16 09:27 84 119/67 11/17/16 09:27 84 11/17/16 09:00 84 11/17/16 08:09 97.0 84 18 119/67 97 Nasal Cannula 2.0 11/17/16 07:20 79 16 Room Air 11/17/16 04:00 80 11/17/16 04:00 97.0 81 20 119/54 97 Room Air 11/17/16 00:29 97.0 76 20 120/72 95 Room Air 11/17/16 00:00 84 11/16/16 21:53 94 145/85 11/16/16 21:00 72 11/16/16 20:00 96.8 80 18 125/73 95 Room Air 11/16/16 19:48 70 16 Room Air 11/16/16 16:00 96.1 71 18 101/45 95 Room Air 11/16/16 16:00 57 General Appearance: WD/WN, no apparent distress, obese EENT: PERRL/EOMI Neck: no JVD Rhythm: Afib Cardiovascular: no murmur, irregularly irregular Respiratory/Chest: lungs clear, No wheeze Abdomen: non tender, soft Extremities: less edema Plan: Discharge home today F/U with my office in 1 week. (Patient was seen earlier today. Signature timestamp does not reflect patient encounter time) Elliot Ann MD Discharge Discharge Disposition Patient was discharged to Discharge Diagnoses: Elliot Ann MD Nov 17, 2016 15:08
[2016-11-17] MEDS ORDERED: LOPRESSOR25 M1 ORAL (15:10)
--- NOTE | 2016-11-17 15:30 | Pulmonology Progress Note ---
Assessment/Plan Problems: (1) Shortness of breath (2) Atrial fibrillation (3) Congestive cardiac failure (4) HTN (hypertension) Assessment/Plan improving heart rate better, anticoagulation check INR, dc planning Subjective ROS Limited/Unobtainable: No Interval Events: walking in the hallway Allergies: Coded Allergies: No Known Allergies (Unverified , 10/08/16) Objective Last 24 Hour Vital Signs Date Time Temp Pulse Resp B/P Pulse Ox O2 Delivery O2 Flow Rate FiO2 11/17/16 12:00 66 11/17/16 11:39 97.0 83 18 125/66 97 Nasal Cannula 2.0 11/17/16 09:27 84 119/67 11/17/16 09:27 84 11/17/16 09:00 84 11/17/16 08:09 97.0 84 18 119/67 97 Nasal Cannula 2.0 11/17/16 07:20 79 16 Room Air 11/17/16 04:00 80 11/17/16 04:00 97.0 81 20 119/54 97 Room Air 11/17/16 00:29 97.0 76 20 120/72 95 Room Air 11/17/16 00:00 84 11/16/16 21:53 94 145/85 11/16/16 21:00 72 11/16/16 20:00 96.8 80 18 125/73 95 Room Air 11/16/16 19:48 70 16 Room Air 11/16/16 16:00 96.1 71 18 101/45 95 Room Air 11/16/16 16:00 57 Intake and Output 11/16/16 11/17/16 19:00 07:00 Intake Total 640 ml Balance 640 ml Intake Oral 640 ml # Voids 3 2 General Appearance: WD/WN, no acute distress HEENT: normocephalic, atraumatic Respiratory/Chest: chest wall non-tender, lungs clear Breasts: no masses Cardiovascular: normal rate Abdomen: normal bowel sounds, soft, non tender Extremities: no cyanosis, no clubbing Skin: no lesions 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, no motor/sensory deficits Laboratory Tests 11/17/16 08:50: White Blood Count 4.6L, Red Blood Count 4.93, Hemoglobin 11.0L, Hematocrit 36.5L , Mean Corpuscular Volume 74L, Mean Corpuscular Hemoglobin 22.3L, Mean Corpuscular Hemoglobin Concent 30.1L, Red Cell Distribution Width 18.1H, Platelet Count 282, Mean Platelet Volume 6.4L, Neutrophils (%) (Auto) 62.7, Lymphocytes (%) (Auto) 20.8, Monocytes (%) (Auto) 11.4H, Eosinophils (%) (Auto) 3.9H, Basophils (%) (Auto) 1.2, Prothrombin Time 20.2H, Prothromb Time International Ratio 1.9H, Sodium Level 141, Potassium Level 3.7, Chloride Level 99, Carbon Dioxide Level 27, Anion Gap 15, Blood Urea Nitrogen 9, Creatinine 0.7 , Estimat Glomerular Filtration Rate , Glucose Level 204H, Calcium Level 8.9 Current Medications Medications (Trade) Dose Ordered Sig/Abby Route PRN Reason Start Time Stop Time Status Last Admin Dose Admin Acetaminophen (Tylenol) 650 mg Q4H PRN ORAL FEVER 11/13/16 22:15 12/13/16 22:14 Albuterol/ Ipratropium (DuoNeb 0.5-3(2.5)mg/3ml) 3 ml Q4H PRN HHN Shortness of Breath 11/13/16 22:15 11/18/16 22:14 Atorvastatin Calcium (Lipitor) 10 mg BEDTIME ORAL 11/14/16 21:00 12/14/16 20:59 11/16/16 21:53 Digoxin (Lanoxin) 0.25 mg DAILY ORAL 11/14/16 09:00 12/14/16 08:59 11/17/16 09:27 Levofloxacin (Levaquin) 500 mg Q24H ORAL 11/15/16 14:00 11/22/16 13:59 11/17/16 14:23 Metoprolol Tartrate (Lopressor) 25 mg Q12HR ORAL 11/15/16 21:00 12/15/16 20:59 11/17/16 09:27 Morphine Sulfate (Morphine Sulfate) 2 mg Q4H PRN IVP severe Pain (Pain Scale 7-10) 11/13/16 22:15 11/20/16 22:14 Nitroglycerin (Ntg) 0.4 mg Q5M PRN SL Prn Chest Pain 11/13/16 22:15 12/13/16 22:14 Ondansetron HCl (Zofran) 4 mg Q6H PRN IVP Nausea & Vomiting 11/13/16 22:15 12/13/16 22:14 Pantoprazole (Protonix) 40 mg DAILY ORAL 11/14/16 09:00 12/14/16 08:59 11/17/16 09:27 Polyethylene Glycol (Miralax) 17 gm DAILYPRN PRN ORAL Constipation 11/13/16 22:15 12/13/16 22:14 Temazepam (Restoril) 15 mg HSPRN PRN ORAL Insomnia 11/13/16 22:15 11/20/16 22:14 11/17/16 00:40 Warfarin Sodium (Coumadin per pharmacy) 1 ea DAILY PRN MISC Per rx protocol 11/15/16 14:15 12/15/16 14:14 Warfarin Sodium (Coumadin) 3 mg COUMADIN ONCE ORAL 11/17/16 17:00 11/17/16 17:01 MEHRAN MENJIVAR Nov 17, 2016 15:30
[2016-11-17 16:00] VITALS: BP 109/62
[2016-11-17] MEDS ORDERED: Warfarin Sodium 3mg ORAL ONE (17:00)
== END 2016-11-17 18:19 | disposition home or self-care (01) | DRG 194 ==
LOC: EMR 17:47 → 2W 19:21 → EDBEDREQ 11-14 01:30 → 2E 11-14 07:05
DX: I50.33 Acute on chronic diastolic (congestive) heart failure (principal); I27.2 Other secondary pulmonary hypertension; I48.92 Unspecified atrial flutter; I48.91 Unspecified atrial fibrillation; I10 Essential (primary) hypertension; Z79.01 Long term (current) use of anticoagulants; E66.9 Obesity, unspecified; Z23 Encounter for immunization
CPT/HCPCS: 36415; 71010; 80048; 80053; 80061; 80162; 83880; 84443; 84484; 85025; 85610; 85730; 86140; 87081; 90732; 93005; 93306; 94664

== ENCOUNTER 2017-01-22 22:30 | Emergency (ER) | payer MEDICAID, OTHER ==
[~2017-01-22] VITALS: Ht 162.6 cm; Wt 136.1 kg
[~2017-01-22 22:30] MED LIST changes: +LOPRESSOR25 M1 ORAL
[2017-01-22 23:03] VITALS: BP 142/76
[2017-01-22] MEDS ORDERED: Albuterol ud Inhalation HHN ONE (23:15)
[2017-01-22] MEDS ORDERED: Ipratropium 0.02% Inh Soln 2.5ml UD HHN ONE (23:15)
[2017-01-22] MEDS ORDERED: Morphine Sulfate 2mg/ml Inj IVP PRN (23:30)
[2017-01-22] MEDS ORDERED: LORazepam Inj 2mg/ml 1ml IV PRN (23:30)
[2017-01-22] MEDS ORDERED: Nitroglycerin Subl 0.4mg tab (Bottle Of 25) SL PRN (23:30)
[2017-01-22] MEDS ORDERED: Ketorolac 30mg Inj IV PRN (23:30)
[2017-01-22] MEDS ORDERED: Promethazine/Codeine 5ml UD ORAL PRN (23:30)
[2017-01-22] MEDS ORDERED: DuoNeb 0.5-3(2.5)mg/3ml neb HHN PRN (23:30)
[2017-01-22 23:45] LABS: BASOPHILS % (AUTO) 0.7 % (0.0-2.0); EOSINOPHILS % (AUTO) 0.1 % (0.0-3.0); LYMPHOCYTES % (AUTO) 7.5 % (20.0-45.0); MEAN CORPUSCULAR HEMOGLOBIN 23.1 PG (27.0-31.0); MEAN CORPUSCULAR HGB CONC 31.4 G/DL (32.0-36.0); MEAN CORPUSCULAR VOLUME 74 FL (80-99); MEAN PLATELET VOLUME 6.3 FL (6.5-10.1); MONOCYTES % (AUTO) 8.9 % (1.0-10.0); NEUTROPHILS % (AUTO) 82.8 % (45.0-75.0); PLATELET COUNT 408 K/UL (150-450); RED BLOOD COUNT 5.16 M/UL (4.20-5.40); WHITE BLOOD COUNT 16.5 K/UL (4.8-10.8)
[2017-01-23] VITALS (8 sets, daily range): BP systolic 111–162; BP diastolic 59–101
[2017-01-23 00:02] LABS: ALANINE AMINOTRANSFERASE 34 U/L (3-33); ANION GAP 16 (5-15); ASPARTATE AMINO TRANSFERASE 49 U/L (5-40); CARBON DIOXIDE 25 mEQ/L (20-30); CHLORIDE 92 mEQ/L (98-107); CREATININE 0.7 mg/dL (0.5-0.9); HEMOLYSIS 99; POTASSIUM 5.1 mEQ/L (3.4-4.9); SODIUM 133 mEQ/L (135-145); TOTAL PROTEIN 7.6 g/dL (6.6-8.7)
[2017-01-23 00:03] LABS: TROPONIN I < 0.30 ng/mL (<=0.30)
[2017-01-23 00:06] LABS: REFLEX LACTIC ACID YES OR NO YES
[2017-01-23 00:07] LABS: INR 1.1 (0.9-1.1); PROTHROMBIN TIME 11.7 SEC (9.30-11.50)
[2017-01-23 00:19] LABS: APPEARANCE,URINE CLEAR; KETONES,URINE NEGATIVE (NEGATIVE); LEUKOCYTE ESTERASE ,URINE NEGATIVE (NEGATIVE); NITRITE,URINE NEGATIVE (NEGATIVE); PH,URINE 6 (4.5-8.0); PROTEIN,URINE 2+ (NEGATIVE); UROBILINOGEN,URINE 1 MG/DL (0.0-1.0)
[2017-01-23] MEDS: Solu-MEDROL 125mg Inj IV SCH ×2 (00:21→05:59)
[2017-01-23 00:30] LABS: RBC,URINE 0-2 /HPF (0 - 2); SQUAMOUS EPITHELIAL CELL,UR FEW /LPF (NONE/OCC); WBC,URINE 0 /HPF (0 - 2)
[2017-01-23] MEDS ORDERED: Zosyn 2.25gm inj ONE (01:28)
[2017-01-23] MEDS ORDERED: Piperacillin/Tazobactam 2.25 GM in NS 55 ML IVPB ONE (01:30)
[2017-01-23] MEDS ORDERED: DuoNeb 0.5-3(2.5)mg/3ml neb HHN ONE (05:00)
--- NOTE | 2017-01-23 05:12 | Emergency Room Report ---
History of Present Illness General Chief Complaint: Upper Respiratory Illness Source: Patient, Family Member Present Illness HPI Patient is 76-year-old female who presented after increased difficulty breathing. Patient had prior history of congestive heart failure as well as atrial fibrillation. Patient had been followed by Dr. Elliot Ann. The patient had been having increased productive cough. She been started on steroid several days ago. She had not been having improvement with medications as prescribed. Allergies: Coded Allergies: No Known Allergies (Unverified , 10/08/16) Patient History Past Medical History: see triage record Last Menstrual Period: Menopause Now: No Reviewed Nursing Documentation: PMH: Agreed, PSxH: Agreed Nursing Documentation-PMH Past Medical History: No History, Except For Hx Cardiac Problems: Yes - A-Fib Hx Hypertension: Yes Hx Cancer: No Hx Gastrointestinal Problems: No Hx Neurological Problems: No Review of Systems All Other Systems: negative except mentioned in HPI Physical Exam Vital Signs Date Time Temp Pulse Resp B/P Pulse Ox O2 Delivery O2 Flow Rate FiO2 01/22/17 22:35 99.1 93 17 142/76 93 Room Air 01/22/17 23:39 21 01/23/17 04:30 3.0 Sp02 EP Interpretation: reviewed, normal General Appearance: normal inspection, well appearing, alert, GCS 15, moderate distress, obese, Chronically Ill Head: atraumatic ENT: normal ENT inspection, hearing grossly normal, normal voice Neck: normal inspection, full range of motion, supple, no bony tend Respiratory: normal inspection, no retraction, wheezing Cardiovascular #1: regular rate, rhythm, edema Gastrointestinal: normal inspection, normal bowel sounds, non tender, soft, no guarding, no hernia Genitourinary: no CVA tenderness Musculoskeletal: normal inspection, back normal, normal range of motion Neurologic: normal inspection, alert, oriented x3, responsive, speech normal Psychiatric: normal inspection, judgement/insight normal, mood/affect normal Skin: normal inspection, normal color, no rash Medical Decision Making Diagnostic Impression: Primary Impression: Shortness of breath Additional Impression: Asthma exacerbation ER Course Patient presented for shortness of breath.Differential included but was not limited to anemia, pneumonia, pneumothorax, myocardial infarction, pericardial effusion, congestive heart failure, acidosis. Because of complexity of patient' s case laboratory testing and imaging studies were ordered. Patient noted have a markedly difficulty breathing and difficulty air movement. Patient given multiple breathing treatments. She was given IV steroids.The patient noted to have elevated white blood count as well as elevated lactic acid level.Dr. Black was contacted for inpatient management due to complexity of medical condition. The patient's insurance subsequently the patient did be transferred for insurance reasons.The patient was discussed with Dr. Bingham who agreed to accept the patient in transfer. Labs Test 01/22/17 23:10 01/22/17 23:59 01/23/17 00:45 White Blood Count 16.5 K/UL (4.8-10.8) Red Blood Count 5.16 M/UL (4.20-5.40) Hemoglobin 11.9 G/DL (12.0-16.0) Hematocrit 38.0 % (37.0-47.0) Mean Corpuscular Volume 74 FL (80-99) Mean Corpuscular Hemoglobin 23.1 PG (27.0-31.0) Mean Corpuscular Hemoglobin Concent 31.4 G/DL (32.0-36.0) Red Cell Distribution Width 18.0 % (11.6-14.8) Platelet Count 408 K/UL (150-450) Mean Platelet Volume 6.3 FL (6.5-10.1) Neutrophils (%) (Auto) 82.8 % (45.0-75.0) Lymphocytes (%) (Auto) 7.5 % (20.0-45.0) Monocytes (%) (Auto) 8.9 % (1.0-10.0) Eosinophils (%) (Auto) 0.1 % (0.0-3.0) Basophils (%) (Auto) 0.7 % (0.0-2.0) Prothrombin Time 11.7 SEC (9.30-11.50) Prothromb Time International Ratio 1.1 (0.9-1.1) Sodium Level 133 mEQ/L (135-145) Potassium Level 5.1 mEQ/L (3.4-4.9) Chloride Level 92 mEQ/L (98-107) Carbon Dioxide Level 25 mEQ/L (20-30) Anion Gap 16 (5-15) Blood Urea Nitrogen 16 mg/dL (7-23) Creatinine 0.7 mg/dL (0.5-0.9) Estimat Glomerular Filtration Rate mL/min (>60) Glucose Level 179 mg/dL (74-106) Calcium Level 9.0 mg/dL (8.6-10.2) Total Bilirubin 0.6 mg/dL (0.0-1.2) Aspartate Amino Transf (AST/SGOT) 49 U/L (5-40) Alanine Aminotransferase (ALT/SGPT) 34 U/L (3-33) Alkaline Phosphatase 78 U/L (35-104) Troponin I < 0.30 ng/mL (<=0.30) Pro-B-Type Natriuretic Peptide 2569 pg/mL (0-450) Total Protein 7.6 g/dL (6.6-8.7) Albumin 3.9 g/dL (3.5-5.2) Globulin 3.7 g/dL Albumin/Globulin Ratio 1.0 (1.0-2.7) Urine Color Yellow Urine Appearance Clear Urine pH 6 (4.5-8.0) Urine Specific [place] 1.020 (1.005-1.035) Urine Protein 2+ (NEGATIVE) Urine Glucose (UA) Negative (NEGATIVE) Urine Ketones Negative (NEGATIVE) Urine Occult Blood 1+ (NEGATIVE) Urine Nitrite Negative (NEGATIVE) Urine Bilirubin Negative (NEGATIVE) Urine Urobilinogen 1 MG/DL (0.0-1.0) Urine Leukocyte Esterase Negative (NEGATIVE) Urine RBC 0-2 /HPF (0 - 2) Urine WBC 0 /HPF (0 - 2) Urine Squamous Epithelial Cells Few /LPF (NONE/OCC) Urine Bacteria None /HPF (NONE) Lactic Acid Level 2.60 mmol/L (0.66-2.22) Chest X-Ray Diagnostic Results EP Interpretation: Yes Findings: no consolidation, no effusion, no pneumothorax, no acute cardiopulmonary disease Number of Views: 1 Last Vital Signs Date Time Temp Pulse Resp B/P Pulse Ox O2 Delivery O2 Flow Rate FiO2 01/23/17 04:30 98.8 102 22 147/84 98 Nasal Cannula 3.0 01/22/17 23:39 21 Status: unchanged Disposition: ADMITTED INPATIENT Condition: Serious Referrals: Elliot Ann MD (PCP) Eligio Mcnally Jan 23, 2017 05:12
[2017-01-23] MEDS ORDERED: Piperacillin/Tazobactam 2.25 GM in D5W 55 ML IV SCH (06:00)
[2017-01-23] MEDS ORDERED: Theophylline ER 100mg ORAL SCH (09:00)
[2017-01-23] MEDS ORDERED: Heparin 5000 units/ml inj SUBQ SCH (09:00)
[2017-01-23] MEDS ORDERED: Zosyn 3.375gm q8h **Extended infusion IVPB SCH ×2 (10:00)
--- NOTE | 2017-01-23 10:42 | Diagnostic Imaging Report ---
Indication: Dyspnea Comparison: 11/15/16 A single view chest radiograph was obtained. Findings: The heart is enlarged. Pulmonary vascularity is mildly prominent. Bones are osteopenic. Impression: No change. Cardiomegaly. No overt CHF
[2017-01-23] MEDS ORDERED: Warfarin Sodium 2.5mg ORAL SCH (17:00)
== END 2017-01-23 06:06 | disposition short-term general hospital (02) ==
LOC: EDBEDREQ 01-23 04:21 → EMR 01-23 04:24
DX: J45.901 Unspecified asthma with (acute) exacerbation (principal); R06.02 Shortness of breath; I10 Essential (primary) hypertension; R05 Cough; I50.9 Heart failure, unspecified
CPT/HCPCS: 36415; 71010; 80053; 81003; 83605; 83880; 84484; 85025; 85610; 87040; 87070; 87205; 93005; 94640; 94664; 99285; J2543; J2930; J7620